=== PATIENT | female | born 1945 | race Caucasian/White ===

== ENCOUNTER 2018-01-01 17:10 | Observation (INO) | payer MEDICARE, BC ==
[~2018-01-01 17:10] MED LIST: ISOVUE-370 76%-LOCM 1 ML ONE
[2018-01-01 18:55] LABS: ALT (SGPT) 25 U/L (8-55); AST (SGOT) 30 U/L (5-34); Albumin 4.3 g/dL (3.4-4.8); Alkaline Phosphatase 86 U/L (40-150); Anion Gap 16 mmol/L (10-20); BUN (Urea Nitrogen) 10 mg/dL (9.8-20.1); Bilirubin, Total 1.3 mg/dL (0.2-1.2); Calc. Creatinine Clearance 0 mL/min (70-130); Calcium 9.5 mg/dL (7.8-10.44); Carbon Dioxide 23 mmol/L (23-31); Chloride 97 mmol/L (98-107); Estimated GFR-MDRD 69; Globulin 3.2 g/dL (2.4-3.5); Glucose 171 mg/dL (83-110); Lipase 25 U/L (8-78); Potassium 3.7 mmol/L (3.5-5.1); Protein, Total 7.5 g/dL (6.0-8.3); Sodium 132 mmol/L (136-145)
[2018-01-01] MEDS ORDERED: Morphine 4 MG/ML VIAL ONE (19:05)
[2018-01-01] MEDS ORDERED: Ondansetron PF 4 MG/2 ML Vial ONE (19:05)
[2018-01-01 19:56] LABS: #Lymphocytes 1.6 thou/uL (1.20-3.40); #Monocytes 0.6 thou/uL (0.11-0.59); #Neutrophils 8.9 thou/uL (1.40-6.50); %Basophils 0.3 % (0.0-1.0); %Eosinophils 0.1 % (0.0-10.0); %Lymphocytes 14.6 % (21.0-51.0); %Monocytes 5.2 % (0.0-10.0); %Neutrophils 79.7 % (42.0-75.0); Anisocytosis MODERATE=16-30 cells (100X) (0-5/hpf); Elliptocytes SLIGHT = 2-5 cells (100X) (0-1/hpf); Hypochromia SLIGHT = 6-15 cells (100X) (0-5/hpf); Large Platelets SLIGHT; MDiff Complete? YES; Mean Corpuscular HGB CONC 31.1 g/dL (32.0-36.0); Mean Corpuscular Hemoglobin 20.3 pg (27.0-31.0); Mean Corpuscular Volume 65.3 fL (78.0-98.0); Mean Platelet Volume 6.8 fL (7.4-10.4); Ovalocytes SLIGHT = 2-5 cells (100X) (0-1/hpf); PLT Morphology Comment Appears Increased; Platelet Count 477 thou/uL (130-400); Polychromasia SLIGHT = 2-3 cells (100X) (0-2/hpf); RBC Distribution Width 20.2 % (11.5-14.5); Red Blood Cell (RBC) Count 7.89 mill/uL (4.20-5.40); White Blood Cell (WBC) Count 11.2 thou/uL (4.8-10.8)
[2018-01-01 19:58] LABS: Bilirubin Small (Negative); Blood, Urine Negative (Negative); Clarity TURBID (Clear); Glucose, Urine (Dipstick) 100 mg/dL (Negative); Leukocyte Small (Negative); Nitrite Negative (Negative); Protein, Urine (Dipstick) 30 mg/dL (Neg-Trace)
[2018-01-01 19:59] LABS: Bacteria/HPF None Seen HPF (None Seen); RBC/HPF 0-3 HPF (0-3)
[2018-01-01 20:09] LABS: Hyaline Casts/LPF 0-3 HYALINE CAST LPF (0-3 Hyaline); Other Casts/LPF None Seen LPF (0-3 Hyaline)
[2018-01-01] MEDS ORDERED: cefTRIAXone\\ROCEPHIN 1 GM VIAL ONE (20:41)
--- NOTE | 2018-01-01 21:09 | CT ---
CT ABDOMEN AND PELVIS WITH IV CONTRAST: 01/01/2018 HISTORY: Abdominal pain. Diarrhea. COMPARISON: None available. FINDINGS: There is bibasilar atelectasis. There is a pleural-based calcification seen at the most medial right lung base. Degenerative changes are seen in the spine. Vascular calcifications are seen in the coronary arteries, as well as involving the abdominal aorta a nd iliac arteries. The heart is mildly enlarged. An exophytic, subcentimeter, rxn-mpeaw-pq-characterize, hypodense lesion is seen at the posterolatera l aspect, mid portion, left kidney. The liver, spleen, pancreas, bilateral adrenal glands, right kidney, and decompressed urinary bladder demonstrate a normal CT appearance. The uterus also demonstrates a normal CT appearance for the age of the patient. There is a large, supraumbilical ventral abdominal wall hernia, which contains mesenteric fat, as wel l as a portion of the transverse colon. There is no evidence of a bowel obstruction. The hernia def ect measures approximately 5.1 cm in transverse dimension. There is colonic diverticulosis. The appendix is visualized and is normal in caliber. Loops of small bowel are normal in caliber. There is no free fluid, fluid collection, or lymphadenopathy seen in the abdomen or pelvis. IMPRESSION: 1. Large ventral abdominal wall hernia, containing a portion of the transverse colon. There is no e vidence of a bowel obstruction. 2. Subcentimeter, xxf-dlnmm-co-characterize, hypodense lesion, left kidney. 3. Mild cardiomegaly. 4. Colonic diverticulosis. POS: DAVID
[2018-01-01 22:39] LABS: Lactic Acid 2.9 mmol/L (0.5-2.2)
[2018-01-01 22:44] VITALS: BMI 40.8
[2018-01-02] MEDS ORDERED: Ondansetron ODT 4 MG TAB SL PRN (07:46)
[2018-01-02] MEDS ORDERED: Dextrose 5% in Water 1,000 ML IV PRN (07:46)
[2018-01-02] MEDS ORDERED: HumaLOG 300 UNITS/3 ML VIAL SC PRN (07:46)
[2018-01-02] MEDS ORDERED: Ondansetron ODT 4 MG TAB PO PRN (07:46)
[2018-01-02] MEDS ORDERED: Acetaminophen 325 MG TAB PO PRN (07:46)
[2018-01-02] MEDS ORDERED: Dextrose 50% Abboject 50 ML SYRINGE SLOW IVP PRN (07:46)
--- NOTE | 2018-01-02 08:50 | HP ---
PRIMARY CARE PHYSICIAN: Alejandra Roach M.D. CHIEF COMPLAINT: Referred to the [facility] Service by [facility] for na usea, vomiting, and diarrhea. HISTORY OF PRESENT ILLNESS: Two days ago, the patient had diarrhea all day long, no blood, that reso lved. Then, yesterday, she had nausea and vomiting, started in the morning, lasted about 4 p.m., bernard e cramping abdominal pain. She had no blood in her stools. She has had no fever or chills. She has been basically okay since 4:00 p.m. yesterday. PAST MEDICAL HISTORY: Diabetes mellitus, type 2, non-insulin dependent; hypertension; elevated melany sterol; and obstructive sleep apnea. CURRENT MEDICATIONS: Alprazolam 0.25 mg twice a day, amlodipine 5 mg a day, aspirin 81 mg a day, Bernard a 350 mg p.o. t.i.d., fenofibrate 145 mg a day, furosemide 40 mg in the morning and 20 mg in the afte rnoon, glipizide 2.5 mg ER daily, metoprolol 100 mg p.o. b.i.d., Protonix 40 mg a day, Paxil 30 mg in the evening, pravastatin 80 mg a day, trazodone 50 mg p.o. at bedtime. ALLERGIES: CODEINE, causes GI upset. PAST SURGICAL HISTORY: Bilateral total knee replacement, tubal ligation in the distant past, skin ca ncer removed from her right arm. She had lymph node removal. She was followed at [facility] and co nsidered cancer free. FAMILY HISTORY: Father had hypertension, of a ruptured aortic abdominal aneurysm. Mother had c oronary artery disease. She with cancer, multiple myeloma. SOCIAL HISTORY: Patient is , FULL CODE status. is surrogate decision maker. She smo kes 1 pack a day for many years, drinks no alcohol. REVIEW OF SYSTEMS: General: She has occasional dizzy, lightheaded spells when her blood sugar gets low; otherwise, no fainting, no dizziness, no headaches. Eyes: No double vision, blurred vision, fl ashing lights. Ears, Nose, Throat: No ear pain or drainage. No nasal bleeding. No trouble swallow ing. Cardiac: No chest pain, orthopnea, or paroxysmal nocturnal dyspnea. Respiratory: She has a c hronic cough, which is only rarely productive of mucoid sputum. She has no dyspnea on exertion, no a sthma, no wheezing. Gastrointestinal: See present illness. Genitourinary: No painful urination, n o blood in her urine. Musculoskeletal: No pain or swelling in her arms or legs. Neurologic: No st rokes, seizures, or focal weakness. Psychiatric: She gets anxiety. She is stable on current medica tions. Skin: With no current bruising, bleeding, or rash. Heme/Lymph: No tender or swollen lymph nodes in axilla, inguinal, or cervical area. PHYSICAL EXAMINATION: GENERAL: She is an alert, pleasant, oriented x3 lady, asking when she can go home. VITAL SIGNS: Blood pressure 120/75, respirations 20, pulse 59, temperature 98.8. HEENT: Examination of her head, eyes, ears, nose, and throat reveal pupils equal, round, and reactiv e to light. Extraocular movements intact. Sclerae white. Tympanic membranes clear. Nose clear. O ral mucous membranes are wet. Dental hygiene is good. NECK: Supple, without jugular venous distention, adenopathy, or thyromegaly. CHEST: Clear to auscultation and percussion. HEART: Regular rate and rhythm. First and second heart sounds are clear. There are no appreciated murmurs or gallops. ABDOMEN: Soft, bowel sounds are normal. There is no hepatosplenomegaly, no mass, no rebound, no ten derness. EXTREMITIES: Reveal no cyanosis, clubbing, or edema. PULSES: Carotid, radial, femoral, and dorsalis pedis pulses intact, symmetric. SKIN: Warm and dry without bruises or rash. HEME/LYMPH: Reveal no tender or swollen lymph nodes in axilla, inguinal, or cervical area. STUDIES: Abdominal CT abdomen and pelvis CT reveals only a ventral hernia with some transverse colon in it, no entrapment. LABORATORY DATA: UA shows 4-6 white cells with a lot of epithelial cells, small leukocyte esterase, negative nitrite. Comp metabolic profile reveals sodium of 132, potassium 3.7, creatinine 0.82, BUN 10, blood sugar 171 and 81. Lactate 3.3 and 2.9, bilirubin 1.3. White count 11.2, hemoglobin 16.0, platelet count 477,000. ADMITTING DIAGNOSES: 1. Gastroenteritis, most likely viral, resolved. 2. Mild lactic acidosis. 3. Pyuria, probably contaminant, as she has a small esterase, negative nitrite, and a lot of epithel ial cells to go along with only 4-6 white cells. 4. Diabetes mellitus, type 2, non-syndrome dependent. 5. Hypertension. 6. Elevated cholesterol. 7. Obstructive sleep apnea. PLAN: 1. Repeat serum lactate. 2. Diabetic diet. 3. Accu-Cheks and sliding scale. 4. Selected home medicines. We will observe over the next few hours. If she eats and remains asymp tomatic, she will be discharged home.
[2018-01-02] MEDS ORDERED: ALPRAZolam 0.25 MG TAB PO SCH (09:00)
[2018-01-02] MEDS ORDERED: Furosemide 20 MG TAB PO SCH ×2 (09:00→16:00)
[2018-01-02] MEDS ORDERED: Aspirin 81 mg Enteric Coated Tablet PO SCH (09:00)
[2018-01-02] MEDS ORDERED: Amlodipine 5 MG TAB PO SCH (09:00)
[2018-01-02 12:11] VITALS: BP 132/106; TEMP 97.5
--- NOTE | 2018-01-02 12:28 | DIS ---
TRANSFER OF CARE NOTE DATE OF ADMISSION: 01/02/2018 DATE OF DISCHARGE: 01/02/2018 DISPOSITION: Discharged home. PRIMARY CARE PROVIDER: Dr. Alejandra Roach FINAL DIAGNOSES: 1. Gastroenteritis, viral, resolved. 2. Diabetes mellitus type 2. 3. Hypertension. 4. Dyslipidemia. 5. Lactic acidosis, mild. DISCHARGE MEDICATIONS: Home medicines; Risperdal 350 t.i.d., aspirin 81 mg a day, trazodone 50 mg p. o. at bedtime, amlodipine 5 mg a day, alprazolam 2.25 mg b.i.d., Lasix 40 mg a day, fenofibrate 145 m g a day, metoprolol 100 mg twice a day, Lasix 20 mg a day in the afternoon, 40 in the morning, Paxil 30 mg a day, glipizide ER 2.5 daily, Protonix 40 mg daily, pravastatin 80 mg daily. ALLERGIES: CODEINE. DIET: Diabetic. PENDING AT THE TIME OF DISCHARGE: Nothing. CODE STATUS: Full. HOSPITAL COURSE: [facility]. She had had diarrhea 2 days before, nausea and vomiting the day before. She was placed in the hospital, had no further nausea, vomiting, etc. overnight. I fed her this morning, she did well. Sh e is ready to go home. Comp metabolic profile showed only a sodium of 132. Blood sugar 171, total b ilirubin 1.3. She did have a lactic acid 3.3, then 2.9, now 1.9. She had 11.2 white count, 16.0, he moglobin, 477,[address] of her abdomen and pelvis revealed a ventral hernia with some transverse colon. No evidence of jake wel obstruction. Abdominal exam is benign. She is eating well, desirous to go home. She is being d ischarged for follow up with Dr. Alejandra Roach in 1 week. PROCEDURES: None. CONSULTATIONS: None.
[2018-01-02] MEDS ORDERED: PARoxetine 20 MG TAB PO SCH (21:00)
[2018-01-02] MEDS ORDERED: Atorvastatin Calcium 20 MG TAB PO SCH (21:00)
[2018-01-02] MEDS ORDERED: traZODone HCl 50 MG TAB PO SCH (21:00)
[2018-01-02] MEDS ORDERED: Fenofibrate Nanocrystallized 145 MG TAB PO SCH (21:00)
== END 2018-01-02 13:42 | disposition home or self-care (01) ==
LOC: ERS 17:10 → 2SW 22:08
PROVIDERS: ADMIT Internal Medicine; ATTEND Internal Medicine
DX: A08.4 Viral intestinal infection, unspecified (principal); I10 Essential (primary) hypertension; E11.9 Type 2 diabetes mellitus without complications; E78.5 Hyperlipidemia, unspecified; E87.2 Acidosis; Z79.82 Long term (current) use of aspirin; Z79.899 Other long term (current) drug therapy; Z88.5 Allergy status to narcotic agent
CPT/HCPCS: 74177; 80053; 82962 ×2; 83605 ×2; 83690; 85025; 87086; 96361; 96365; 96375; 99285; G0378 ×2; 36415; 36416; 81003; 81015; J0696; J2270; J2405

== ENCOUNTER 2019-01-31 17:37 | Emergency (ER) | payer MEDICARE, BC ==
[~2019-01-31 17:37] MED LIST changes: -ISOVUE-370 76%-LOCM 1 ML ONE; +Iopamidol-370 76% 500 ML 1 ML ONE
--- NOTE | 2019-01-31 21:56 | RAD ---
Exam: Chest one view HISTORY:Dyspnea Comparison: 01/26/2019 FINDINGS: Cardiac silhouette:Cardiomegaly Aorta: Atherosclerosis Pulmonary vessels: Normal Costophrenic angles: Clear LUNGS: Diffuse interstitial opacities, without consolidation or mass. Pneumothorax: None Osseous abnormalities: None IMPRESSION: Diffuse interstitial opacities which may represent interstitial infiltrate. Given cardiom egaly, component of heart failure cannot be excluded.
[2019-01-31 21:58] LABS: Hemoglobin 16.3 g/dL (12.0-16.0); Mean Corpuscular HGB CONC 30.3 g/dL (32.0-36.0); Mean Corpuscular Hemoglobin 19.3 pg (27.0-31.0); Mean Corpuscular Volume 63.4 fL (78.0-98.0); Mean Platelet Volume 7.7 fL (7.4-10.4); Platelet Count 472 thou/uL (130-400); RBC Distribution Width 21.1 % (11.5-14.5); Red Blood Cell (RBC) Count 8.76 mill/uL (4.20-5.40); White Blood Cell (WBC) Count 13.3 thou/uL (4.8-10.8)
[2019-01-31 22:05] LABS: #Lymphocytes 1.8 thou/uL (1.20-3.40); #Monocytes 0.9 thou/uL (0.11-0.59); #Neutrophils 10.6 thou/uL (1.40-6.50); %Basophils 0.2 % (0.0-1.0); %Eosinophils 0.2 % (0.0-10.0); %Lymphocytes 13.6 % (21.0-51.0); %Monocytes 6.6 % (0.0-10.0); %Neutrophils 79.5 % (42.0-75.0); Hypochromia SLIGHT = 6-15 cells (100X) (0-5/hpf); Large Platelets SLIGHT; MDiff Complete? YES; Microcytosis SLIGHT = 6-15 cells (100X) (0-5/hpf); Platelet Morphology Comment Appears Increased
[2019-01-31 22:36] LABS: ALT (SGPT) 17 U/L (8-55); AST (SGOT) 23 U/L (5-34); Albumin 4.3 g/dL (3.4-4.8); Alkaline Phosphatase 94 U/L (40-110); Anion Gap 13 mmol/L (10-20); BUN (Urea Nitrogen) 9 mg/dL (9.8-20.1); Bilirubin, Total 1.4 mg/dL (0.2-1.2); Calc. Creatinine Clearance 0 mL/min (70-130); Calcium 9.6 mg/dL (7.8-10.44); Carbon Dioxide 30 mmol/L (23-31); Chloride 96 mmol/L (98-107); Estimated GFR-MDRD 66; Globulin 3.2 g/dL (2.4-3.5); Glucose 133 mg/dL (83-110); Potassium 3.1 mmol/L (3.5-5.1); Protein, Total 7.5 g/dL (6.0-8.3); Sodium 136 mmol/L (136-145)
--- NOTE | 2019-01-31 23:08 | CT ---
EXAM: CT ABDOMEN AND PELVIS HISTORY: Abdominal pain. Nausea. Vomiting. COMPARISON: 01/01/2018 Procedure: Multiple contiguous axial images were obtained and a CT of the abdomen and pelvis with IV contrast. C oronal reformats were performed. FINDINGS: Lower Chest: Chronic changes in the left lower lobe. Vessels: Atherosclerosis of a nonaneurysmal aorta Heart: Normal heart size. No significant pericardial fluid. Calcification of the mitral annulus. Satnam nary calcifications Abdomen: Portal vein:Patent Gallbladder: No calcified gallstones. Normal caliber wall. Liver: within normal limits. Pancreas: within normal limits. Spleen: within normal limits. Adrenals: within normal limits. Kidneys: Symmetric enhancement. Bilaterally no obstructive uropathy. Peritoneum: There is stranding of the central abdominal mesentery. No mass, lymphadenopathy or free a ir.: Small amount of fluid in both paracolic gutters. Bowel: Limited evaluation due to lack of oral contrast administration. Mild bowel wall thickening wit h fluid and adjacent mesenteric fat stranding involving a large anterior abdominal wall hernia. Mesentery and Retroperitoneum: No enlarged mesenteric or retroperitoneal lymph nodes. Abdominal Wall: Large ventral abdominal wall hernia, measuring 17.2 x 9.6 cm. The defect measures 5.9 cm. There are small bowel loops within the hernia sac, some of which demonstrate fecalization. There does not appear to be any associated proximal high-grade obstruction. Nevertheless, given the o verall size of the hernia defect, general surgical consultation is strongly recommended. The right hemicolon and a portion of the transverse colon appear to be in the hernia sac. Pelvis: Reproductive Organs: Uterus and adnexal structures are grossly unremarkable Pelvis: No mass, lymphadenopathy, free air or free fluid. Bladder: within normal limits. Bones: within normal limits. IMPRESSION: Large anterior abdominal wall hernia containing segments of distal small bowel and proximal colon. Th ere is mild bowel wall thickening, adjacent mesenteric fat stranding and fluid involving segment of herniated bowel. There does not appear to be any associated high grade obstruction. Nevertheless, giv en the overall size of the hernia sac general surgical consultation is recommended Transcribed Date/Time: 01/31/2019 11:20 PM
[2019-01-31] MEDS ORDERED: Ondansetron PF 4 MG/2 ML Vial ONE (23:13)
[2019-01-31] MEDS ORDERED: Morphine 4 MG/ML VIAL ONE (23:13)
== END 2019-01-31 23:42 | disposition home or self-care (01) ==
LOC: ERS 17:37
DX: K43.9 Ventral hernia without obstruction or gangrene (principal); E11.9 Type 2 diabetes mellitus without complications; E78.5 Hyperlipidemia, unspecified; E78.00 Pure hypercholesterolemia, unspecified; I10 Essential (primary) hypertension; M19.90 Unspecified osteoarthritis, unspecified site; F32.9 Major depressive disorder, single episode, unspecified; F17.210 Nicotine dependence, cigarettes, uncomplicated; Z79.899 Other long term (current) drug therapy; Z79.84 Long term (current) use of oral hypoglycemic drugs; Z79.82 Long term (current) use of aspirin
CPT/HCPCS: 36415; 71045; 74177; 80053; 83605; 84484; 85025; 93005; 96374; 96375; J2270; J2405; Q9967

== ENCOUNTER 2019-02-06 11:45 | Inpatient (IN) | payer MEDICARE, BC ==
[2019-02-05 12:48] VITALS: BMI 38.9
[~2019-02-06 11:45] MED LIST changes: +Bupivacaine HCl 0.5%/Epinephrine 1:200,000/PF 30 ml Vial ONE; +Glycopyrrolate 0.2 MG/ML 5 ML SYRINGE ONE; -Iopamidol-370 76% 500 ML 1 ML ONE; +Ketorolac Tromethamine 30 MG/ML VIAL ONE; +Lidocaine 1% PF 5 ML VIAL ONE; +Ondansetron PF 4 MG/2 ML Vial ONE; +PHENYLEPHRINE-NS 100 MCG/ML 10 ML SYRINGE ONE; +PROPOFOL 200 MG/20 ML VIAL ONE; +Rocuronium Bromide 10 MG/ML (10ML VIAL) ONE; +Ropivacaine 0.5% HCl/PF (150 MG/30 ML VIAL) ONE
[2019-02-06] MEDS ORDERED: Bupivacaine 0.25% HCL 30 ML VIAL ONE (12:18)
[2019-02-06] MEDS ORDERED: Lidocaine 2% w/Epinephrine 1:200K 20 ML VIAL ONE (12:18)
[2019-02-06] MEDS ORDERED: Midazolam HCl 2 mg/2 ml Vial ONE ×2 (12:24→12:27)
[2019-02-06] MEDS ORDERED: Fentanyl 100 MCG/2 ML VIAL ONE ×2 (12:24→12:27)
[2019-02-06] MEDS ORDERED: HYDROcodone/Acetaminophen 10/325 mg Tablet PO PRN (14:14)
[2019-02-06] MEDS ORDERED: Calcium Carbonate 500 MG ChewTAB PO PRN (14:14)
[2019-02-06] MEDS ORDERED: Ondansetron PF 4 MG/2 ML Vial IVP PRN (14:14)
[2019-02-06] MEDS ORDERED: Dextrose 5% in Water 1,000 ML IV PRN (14:14)
[2019-02-06] MEDS ORDERED: Morphine 2 MG/ML SYRINGE SLOW IVP PRN (14:14)
[2019-02-06] MEDS ORDERED: hydrALAZINE 20 MG/ML VIAL SLOW IVP PRN (14:14)
[2019-02-06] MEDS ORDERED: Promethazine HCl 25 MG/ML VIAL IM PRN ×2 (14:14→14:29)
[2019-02-06] MEDS ORDERED: Dextrose 50% Abboject 50 ML SYRINGE SLOW IVP PRN (14:14)
[2019-02-06] MEDS ORDERED: Mag-Al 1200 mg/1200 mg/30 ML UDCUP PO PRN (14:14)
[2019-02-06] MEDS ORDERED: Morphine 4 MG/ML VIAL SLOW IVP PRN (14:14)
[2019-02-06] MEDS ORDERED: Ondansetron HCl/PF 4 MG/2 ML Vial IVP PRN (14:29)
[2019-02-06] MEDS ORDERED: Promethazine HCl 25 MG/ML VIAL SLOW IVP PRN (14:29)
--- NOTE | 2019-02-06 14:55 | OP ---
DATE OF PROCEDURE: 02/06/2019 PREOPERATIVE DIAGNOSIS: Incarcerated painful ventral hernia. PROCEDURE PERFORMED: Open ventral hernia repair with mesh. INDICATIONS: This is a 73-year-old female with a several year history of an enlarging hernia, which recently has become extremely painful and not able to be reduced. FINDINGS: A 6 cm defect, 17 cm hernia, 15 cm mesh was used for the procedure. DESCRIPTION OF PROCEDURE: After informed consent was obtained, the patient was taken to the operating room and given general endotracheal anesthesia and placed in the supine position. Abdomen was prepped and draped in usual fashion. She had, had preop tap blocks. An upper midline incision was performed. The hernia sac was dissected out using blunt and sharp dissection circumferentially. Then, the hernia sac was excised. Contents were reduced. The defect was 6 cm. A 15-cm PROCEED mesh was fashioned with 0 Ethibond in 4 quadrants. This was hydrated and inserted intra-abdominally. Then using the XATAee needle, these sutures were individually grasped to position the mesh optimally to cover the defect. Then, the defect was closed transversely with interrupted #1 Prolene [id number]. Hemostasis was assured. The wound was irrigated. A drain was placed and brought out through the right side. The subcu was closed with interrupted 3-0 Vicryl. The skin was closed with a running subcuticular 4-0 Rapide. Steri-Strips were applied. Sterile bandage applied. The patient tolerated the procedure well, transferred to Recovery in good condition. Sponge and needle count verified correct x2. Job ID: [id number]
[2019-02-06] MEDS: D5 1/2 NS w/20 mEq KCL 1,000 ML IV SCH (16:06)
[2019-02-06] MEDS: Ketorolac Tromethamine 30 MG/ML VIAL IVP SCH (17:52)
[2019-02-06] MEDS: cefOXitin Sodium/Dextrose,Iso 2 GM in Premix Bag 1 BAG IVPB SCH (20:21)
[2019-02-06] MEDS: Famotidine/PF 20 mg/2ml Vial SLOW IVP SCH (20:21)
[2019-02-06] MEDS: Famotidine 20 MG TAB PO SCH (20:22)
[2019-02-07] MEDS: Ketorolac Tromethamine 30 MG/ML VIAL IVP SCH ×4 (00:04→20:36)
[2019-02-07] MEDS: D5 1/2 NS w/20 mEq KCL 1,000 ML IV SCH ×4 (00:08→19:24)
[2019-02-07] MEDS: cefOXitin Sodium/Dextrose,Iso 2 GM in Premix Bag 1 BAG IVPB SCH ×2 (03:58→15:40)
[2019-02-07 06:23] LABS: #Lymphocytes 1.2 thou/uL (1.20-3.40); %Basophils 0.1 % (0.0-1.0); %Eosinophils 0.1 % (0.0-10.0); %Monocytes 7.8 % (0.0-10.0); %Neutrophils 82.9 % (42.0-75.0)
[2019-02-07 06:24] LABS: Hemoglobin 14.7 g/dL (12.0-16.0); Mean Corpuscular Hemoglobin 19.9 pg (27.0-31.0); Mean Corpuscular Volume 64.1 fL (78.0-98.0); Mean Platelet Volume 7.5 fL (7.4-10.4); Platelet Count 382 thou/uL (130-400); RBC Distribution Width 21.1 % (11.5-14.5); Red Blood Cell (RBC) Count 7.37 mill/uL (4.20-5.40); White Blood Cell (WBC) Count 14.2 thou/uL (4.8-10.8)
[2019-02-07 06:29] LABS: ALT (SGPT) 11 U/L (8-55); AST (SGOT) 28 U/L (5-34); Albumin 3.6 g/dL (3.4-4.8); Alkaline Phosphatase 76 U/L (40-110); Anion Gap 11 mmol/L (10-20); BUN (Urea Nitrogen) 10 mg/dL (9.8-20.1); Bilirubin, Total 1.3 mg/dL (0.2-1.2); Calc. Creatinine Clearance 60 mL/min (70-130); Calcium 8.8 mg/dL (7.8-10.44); Carbon Dioxide 28 mmol/L (23-31); Chloride 98 mmol/L (98-107); Estimated GFR-MDRD 40; Globulin 2.6 g/dL (2.4-3.5); Glucose 150 mg/dL (83-110); Potassium 4.2 mmol/L (3.5-5.1); Protein, Total 6.2 g/dL (6.0-8.3); Sodium 133 mmol/L (136-145)
[2019-02-07] MEDS: Enoxaparin Sodium 40 MG/0.4 ML SYRINGE SC SCH (08:42)
[2019-02-07] MEDS: Famotidine 20 MG TAB PO SCH ×2 (08:42→20:35)
[2019-02-07] MEDS: Famotidine/PF 20 mg/2ml Vial SLOW IVP SCH ×2 (08:44→20:29)
[2019-02-07] MEDS ORDERED: Prevnar 13-Val Conj/PF 0.5 ML SYRINGE IM ONE (09:00)
[2019-02-07] MEDS: HYDROcodone/Acetaminophen 10/325 mg Tablet PO PRN (12:56)
[2019-02-07] MEDS ORDERED: Cyclobenzaprine 10 MG TAB PO PRN (16:03)
[2019-02-07] MEDS ORDERED: Amlodipine 5 MG TAB PO SCH (16:15)
[2019-02-07] MEDS ORDERED: Furosemide 20 MG/2 ML VIAL SLOW IVP SCH (16:30)
--- NOTE | 2019-02-07 16:39 | PRG ---
DATE OF SERVICE: 02/07/2019 SUBJECTIVE: The patient is status post ventral hernia repair yesterday. Pain is okay. She has had some hypoxia, who was guided down to 1 L, but she is only saturating at 92%, still kind of weak. She is tolerating liquids well. She is normally on Lasix and she did get her afternoon dose. LABORATORY DATA: White count 14, H and H of 14 and 47, and platelet count 382. Electrolytes are fine. ASSESSMENT: Probably mild congestive heart failure. PLAN: We will give her some additional Lasix. Continue to ambulate, and hopefully, be able to discharge tomorrow. Job ID: [id number]
[2019-02-07] MEDS: ALPRAZolam 0.25 MG TAB PO SCH (20:35)
[2019-02-07] MEDS ORDERED: Pravastatin Sodium 40 MG TAB PO SCH (21:00)
[2019-02-07] MEDS ORDERED: traZODone HCl 50 MG TAB PO SCH (21:00)
[2019-02-07] MEDS ORDERED: Furosemide 20 MG TAB PO SCH (21:00)
[2019-02-07] MEDS ORDERED: PARoxetine 20 MG TAB PO SCH (21:00)
[2019-02-07] MEDS ORDERED: Fenofibrate Nanocrystallized 145 MG TAB PO SCH (21:00)
[2019-02-08] MEDS: cefOXitin Sodium/Dextrose,Iso 2 GM in Premix Bag 1 BAG IVPB SCH ×2 (00:06→06:35)
[2019-02-08] MEDS: Ketorolac Tromethamine 30 MG/ML VIAL IVP SCH ×2 (02:37→08:18)
[2019-02-08 08:16] VITALS: TEMP 97.9
[2019-02-08] MEDS: ALPRAZolam 0.25 MG TAB PO SCH (08:16)
[2019-02-08] MEDS: Famotidine 20 MG TAB PO SCH (08:17)
[2019-02-08] MEDS ORDERED: Amlodipine 5 MG TAB PO SCH (09:00)
[2019-02-08] MEDS ORDERED: Aspirin 81 mg Enteric Coated Tablet PO SCH (09:00)
[2019-02-08] MEDS ORDERED: Furosemide 40 MG TAB PO SCH (09:00)
[2019-02-08] MEDS: Famotidine/PF 20 mg/2ml Vial SLOW IVP SCH (09:10)
[2019-02-08 12:13] VITALS: BP 131/83
[2019-02-08] MEDS: HYDROcodone/Acetaminophen 10/325 mg Tablet PO PRN (12:31)
[2019-02-08] MEDS: Enoxaparin Sodium 40 MG/0.4 ML SYRINGE SC SCH (13:27)
--- NOTE | 2019-02-08 14:05 | DIS ---
DATE OF ADMISSION: 02/06/2019 DATE OF DISCHARGE: 02/08/2019 DISCHARGE DIAGNOSES: Large incarcerated ventral hernia, chronic obstructive pulmonary disease, and sleep apnea. PROCEDURES DURING ADMISSION: Open ventral hernia repair with mesh. HOSPITAL COURSE: The patient was admitted, taken to the operating room, where she underwent repair of this hernia. Postoperatively, she had some hypoxia requiring oxygen that slowly resolved. She is now 90% to 92% on room air. She is discharged home on hydrocodone and Zofran. She will follow up with me on Monday because she will be sent home with a drain. Job ID: [id number]
[2019-02-09] MEDS ORDERED: Enoxaparin Sodium 40 MG/0.4 ML SYRINGE SC SCH (09:00)
== END 2019-02-08 13:25 | disposition home or self-care (01) | DRG 355 ==
LOC: SDC 11:45 → SJJU 14:18
PROVIDERS: ADMIT Surgery; ATTEND Surgery
PROC: 0WUF0JZ Supplement Abdominal Wall with Synthetic Substitute, Open Approach (ICD-10-PCS; principal; 2019-02-06)
DX: K43.6 Other and unspecified ventral hernia with obstruction, without gangrene (principal); J44.9 Chronic obstructive pulmonary disease, unspecified; R09.02 Hypoxemia; G47.30 Sleep apnea, unspecified; I50.9 Heart failure, unspecified; Z96.653 Presence of artificial knee joint, bilateral; E11.36 Type 2 diabetes mellitus with diabetic cataract; K21.9 Gastro-esophageal reflux disease without esophagitis; F17.200 Nicotine dependence, unspecified, uncomplicated; E78.5 Hyperlipidemia, unspecified; F41.9 Anxiety disorder, unspecified; F32.9 Major depressive disorder, single episode, unspecified; E66.01 Morbid (severe) obesity due to excess calories; Z68.39 Body mass index [BMI] 39.0-39.9, adult; Z85.820 Personal history of malignant melanoma of skin; Z79.899 Other long term (current) drug therapy; Z79.82 Long term (current) use of aspirin; Z79.84 Long term (current) use of oral hypoglycemic drugs; Z88.5 Allergy status to narcotic agent; Z91.041 Radiographic dye allergy status; Z91.040 Latex allergy status
CPT/HCPCS: 36415; 80053; 85025; J0670; J0690; J0694; J1650; J1885; J1940; J2001; J2250; J2405; J2704; J2795; J3010; S0020

== ENCOUNTER 2019-07-22 | Inpatient (IN) | payer MEDICARE, BC | END 2019-07-25 14:45 | disposition home or self-care (01) | DRG 896 | PROVIDERS: ADMIT Student in an Organized Health Care Education/Training Program | DX: F13.239 Sedative, hypnotic or anxiolytic dependence with withdrawal, unspecified (principal); G93.41 Metabolic encephalopathy; E87.1 Hypo-osmolality and hyponatremia; F19.939 Other psychoactive substance use, unspecified with withdrawal, unspecified; E78.5 Hyperlipidemia, unspecified; I10 Essential (primary) hypertension; E11.9 Type 2 diabetes mellitus without complications; M19.90 Unspecified osteoarthritis, unspecified site; R44.1 Visual hallucinations; G47.33 Obstructive sleep apnea (adult) (pediatric); T42.4X5A Adverse effect of benzodiazepines, initial encounter; K52.9 Noninfective gastroenteritis and colitis, unspecified; F32.9 Major depressive disorder, single episode, unspecified; Z91.138 Patient's unintentional underdosing of medication regimen for other reason; Z91.041 Radiographic dye allergy status; Z91.040 Latex allergy status; Z88.5 Allergy status to narcotic agent ==

== ENCOUNTER 2019-11-27 14:21 | Outpatient (CLI) | payer MEDICARE, BC ==
--- NOTE | 2019-11-27 16:11 | MRI ---
Exam: MRI cervical spine without contrast HISTORY: Cervical radicular pain.. COMPARISON: None FINDINGS: Despite repeat imaging, there is motion degradation on all of the sequences. Appropriate T1 marrow signal intensity of the cervical vertebra. Cervical spine vertebral body heigh ts are maintained. No fracture. No significant STIR hyperintensity suggest ligamentous injury or vertebral body edema. There appears be grade 1 anterolisthesis of C3 upon C4. Visualized brain parenchyma, cervicomedullary junction, cervical cord and the upper thoracic cord hav e a normal size and signal intensity C2-C3: No high-grade central canal stenosis or high-grade neural foraminal narrowing C3-C4: No high-grade central canal stenosis or high-grade neural foraminal narrowing C4-C5: No high-grade central canal stenosis or high-grade foraminal narrowing C5-C6: Moderate loss of disc space height. Broad-based discussed by complex. Moderate central canal s tenosis. Severe right and moderate left neural foraminal narrowing C6-C7: Disc desiccation with moderate loss of disc space height. Broad-based discussed by complex. Mo derate central canal stenosis. Moderate bilateral neural foraminal narrowing C7-T1: No posterior disc abnormality. No significant central canal stenosis or significant neural for aminal narrowing IMPRESSION: 1. Limited evaluation due to motion degradation. 2. Degenerative changes of the cervical spine as described above. Transcribed Date/Time: 11/27/2019 5:34 PM
== END 2019-11-27 14:22 | disposition home or self-care (01) ==
LOC: BICMRI 14:21
PROVIDERS: ATTEND Family Medicine
DX: M50.10 Cervical disc disorder with radiculopathy, unspecified cervical region (principal); M47.22 Other spondylosis with radiculopathy, cervical region; G89.4 Chronic pain syndrome
CPT/HCPCS: 72141

== ENCOUNTER 2020-05-14 13:21 | Inpatient (IN) | payer MEDICARE, BC ==
[2020-05-14 14:38] LABS: Bacteria/HPF 2+ HPF (None Seen); Bilirubin 1+ (Negative); Blood, Urine Negative (Negative); Clarity Turbid (Clear); Glucose, Urine (Dipstick) Normal (Negative); Ketone, Urine Negative (Negative); Leukocyte Negative Leu/uL (Negative); Nitrite Negative (Negative); Protein, Urine (Dipstick) 100 mg/dL (Neg-Trace); RBC/HPF 0-3 HPF (0-3); Specific Gravity, Urine 1.018 (1.002-1.036); Squamous Epithelial 0-3 HPF (0-3); WBC/HPF 0-3 HPF (0-3); pH, Urine 5.5 (5.0-9.0)
[2020-05-14 14:48] LABS: Hemoglobin 11.7 g/dL (12.0-16.0); Mean Corpuscular HGB CONC 28.1 g/dL (32.0-36.0); Mean Corpuscular Hemoglobin 17.6 pg (27.0-31.0); Mean Corpuscular Volume 62.7 fL (78.0-98.0); Mean Platelet Volume 7.9 fL (7.4-10.4); Platelet Count 312 thou/uL (130-400); Red Blood Cell (RBC) Count 6.62 mill/uL (4.20-5.40); White Blood Cell (WBC) Count 11.5 thou/uL (4.8-10.8)
[2020-05-14] MEDS ORDERED: Iopamidol-370 76% 500 ML 1 ML ONE (14:52)
[2020-05-14] MEDS ORDERED: Lorazepam 2 MG/ML VIAL ONE ×2 (15:03→17:18)
[2020-05-14] MEDS ORDERED: Haloperidol Lactate 5 MG/ML VIAL ONE (15:03)
[2020-05-14 15:04] LABS: ALT (SGPT) 22 U/L (8-55); AST (SGOT) 56 U/L (5-34); Albumin 3.2 g/dL (3.4-4.8); Alkaline Phosphatase 148 U/L (40-110); Anion Gap 17 mmol/L (10-20); BUN (Urea Nitrogen) 12 mg/dL (9.8-20.1); Bilirubin, Total 10.4 mg/dL (0.2-1.2); Calc. Creatinine Clearance 0 mL/min (70-130); Calcium 8.8 mg/dL (7.8-10.44); Carbon Dioxide 20 mmol/L (23-31); Chloride 88 mmol/L (98-107); Glucose 93 mg/dL (83-110); Lipase 19 U/L (8-78); Potassium 3.9 mmol/L (3.5-5.1); Protein, Total 6.2 g/dL (5.8-8.1); Sodium 121 mmol/L (136-145)
[2020-05-14 15:08] LABS: Anisocytosis MODERATE=16-30 cells (100X) (0-5/hpf); Band 7 % (5-11); Hypochromia MODERATE=16-30 cells (100X) (0-5/hpf); Lymphocytes 7 % (21-51); MDiff Complete? YES; Monocytes 2 % (0-10); Neutrophil 84 % (42-75); Platelet Clumps SLIGHT; Platelet Morphology Comment Appears Adequate; Polychromasia MODERATE = 3-4 cells (100X) (0-2/hpf); Target Cells SLIGHT = 2-5 cells (100X) (0-1/hpf); Tear Drops SLIGHT = 2-5 cells (100X) (0-1/hpf)
[2020-05-14 17:10] LABS: SARS-CoV-2 NAA Rapid Test Not Detected (NotDetected)
[2020-05-14] MEDS ORDERED: diphenhydrAMINE 50 MG/ML VIAL ONE (17:18)
[2020-05-14 17:54] LABS: Reticulocyte Count 3.5 % (0.5-1.5)
[2020-05-14 17:58] LABS: INR-International Normal Ratio 1.6; PTT 38.2 sec (22.9-36.1); Prothrombin Time 19.3 sec (12.0-14.7)
[2020-05-14 18:16] LABS: Bilirubin, Direct 8.5 mg/dL (0.1-0.3); Bilirubin, Total 11.9 mg/dL (0.2-1.2)
[2020-05-14 19:05] LABS: Thyroid Stimulating Hormone 3.1908 uIU/mL (0.35-4.94)
[2020-05-14] MEDS ORDERED: Multivitamins, Adult 10 ML in Dextrose 5 % And 0.9 % NaCl 1,000 ML IV SCH (19:15)
[2020-05-14] MEDS ORDERED: Dextrose 5 % And 0.9 % NaCl 1,000 ML IV SCH (19:15)
[2020-05-14 19:43] LABS: Actual Bicarbonate (HCO3a) 15.8 mEq/L (22-28); Base Excess (BEa) -7.9 mEq/L (-2.0 to +3.0); CO2 Tension 27.7 mmHg (35.0-45.0); Hemoglobin (Hb) 13.1 g/dL (12.0-16.0); O2 Tension (PaO2), arterial 66.5 mmHg (> 70.0); Potassium - ABG Lab 3.88 mmol/L (3.70-5.30); pH, Arterial 7.38 (7.35-7.45)
[2020-05-14 19:44] LABS: Puncture Site RRA
[2020-05-14 19:45] LABS: ALV-art Gradient 212.595 mmHg (0-20)
[2020-05-14] MEDS ORDERED: Lactulose 10 GM/15 ML Oral Solution PR SCH (20:30)
[2020-05-14] MEDS ORDERED: Furosemide 40 MG/4 ML VIAL ONE (20:37)
[2020-05-14] MEDS ORDERED: Furosemide 40 MG/4 ML VIAL SLOW IVP SCH (20:45)
[2020-05-14] MEDS ORDERED: VANCOMYCIN 1.25 GM/250 ML BAG IVPB SCH (20:45)
[2020-05-14 21:08] LABS: Lactic Acid 4.2 mmol/L (0.5-2.2)
[2020-05-14] MEDS ORDERED: Ondansetron ODT 4 MG TAB PO PRN (21:11)
[2020-05-14] MEDS ORDERED: Ondansetron PF 4 MG/2 ML Vial IVP PRN (21:11)
[2020-05-14 21:24] LABS: Albumin 3.2 g/dL (3.4-4.8)
[2020-05-14 21:25] LABS: Chloride 92 mmol/L (98-107); Potassium 4.6 mmol/L (3.5-5.1); Sodium 124 mmol/L (136-145)
[2020-05-14] MEDS ORDERED: Dextrose 5% in Water 1,000 ML IV PRN (21:26)
[2020-05-14 21:27] LABS: Globulin 3.1 g/dL (2.4-3.5); Glucose 78 mg/dL (83-110); Protein, Total 6.3 g/dL (5.8-8.1)
[2020-05-14 21:28] LABS: Anion Gap 26 mmol/L (10-20); Bilirubin, Total 11.5 mg/dL (0.2-1.2); Carbon Dioxide 11 mmol/L (23-31)
[2020-05-14 21:29] LABS: Alkaline Phosphatase 148 U/L (40-110)
[2020-05-14 21:30] LABS: Calc. Creatinine Clearance 0 mL/min (70-130)
[2020-05-14 21:31] LABS: BUN (Urea Nitrogen) 14 mg/dL (9.8-20.1)
[2020-05-14 21:32] LABS: ALT (SGPT) 27 U/L (8-55); AST (SGOT) 75 U/L (5-34)
[2020-05-14] MEDS ORDERED: Albumin 25% 25 GM/100 ML BOT IVPB SCH (22:00)
[2020-05-14] MEDS: Acetaminophen 325 MG TAB PO PRN (22:18)
[2020-05-14] MEDS: Piperacillin/Tazobactam 4.5 GM in Sodium Chloride 0.9% 100 ML IVPB SCH (22:19)
[2020-05-14] MEDS ORDERED: VANCOMYCIN 2 GRAM/400 ML BAG 2 GM in Premix Bag 1 BAG IVPB SCH (22:30)
[2020-05-14 22:55] LABS: Anion Gap 21 mmol/L (10-20); BUN (Urea Nitrogen) 14 mg/dL (9.8-20.1); Calc. Creatinine Clearance 110 mL/min (70-130); Calcium 9.2 mg/dL (7.8-10.44); Carbon Dioxide 16 mmol/L (23-31); Chloride 89 mmol/L (98-107); Glucose 81 mg/dL (83-110); Potassium 4.2 mmol/L (3.5-5.1); Sodium 122 mmol/L (136-145); Uric Acid 6.7 mg/dL (2.6-6.0)
[2020-05-15] MEDS ORDERED: OLANZapine 10 MG VIAL IM SCH (00:15)
[2020-05-15] MEDS ORDERED: Sterile Water 10 ML VIAL FS PRN (00:30)
[2020-05-15 00:52] LABS: Lactic Acid 1.9 mmol/L (0.5-2.2)
[2020-05-15 03:57] LABS: INR-International Normal Ratio 1.6; PTT 30.2 sec (22.9-36.1); Prothrombin Time 19.6 sec (12.0-14.7)
[2020-05-15] MEDS: Piperacillin/Tazobactam 4.5 GM in Sodium Chloride 0.9% 100 ML IVPB SCH ×2 (04:00→13:38)
[2020-05-15 04:16] LABS: Anion Gap 19 mmol/L (10-20); BUN (Urea Nitrogen) 15 mg/dL (9.8-20.1); Calc. Creatinine Clearance 116 mL/min (70-130); Calcium 9.1 mg/dL (7.8-10.44); Carbon Dioxide 19 mmol/L (23-31); Chloride 92 mmol/L (98-107); Glucose 87 mg/dL (83-110); Potassium 4.1 mmol/L (3.5-5.1); Sodium 126 mmol/L (136-145)
[2020-05-15 04:20] LABS: Anion Gap 20 mmol/L (10-20); BUN (Urea Nitrogen) 14 mg/dL (9.8-20.1); Calc. Creatinine Clearance 119 mL/min (70-130); Calcium 9.1 mg/dL (7.8-10.44); Carbon Dioxide 17 mmol/L (23-31); Chloride 93 mmol/L (98-107); Glucose 86 mg/dL (83-110); Potassium 4.1 mmol/L (3.5-5.1); Sodium 126 mmol/L (136-145)
[2020-05-15] MEDS: Folic Acid 1 MG TAB PO SCH (08:37)
[2020-05-15] MEDS: Enoxaparin Sodium 40 MG/0.4 ML SYRINGE SC SCH (08:37)
[2020-05-15] MEDS: Furosemide 40 MG/4 ML VIAL SLOW IVP SCH (08:39)
[2020-05-15] MEDS: Lorazepam 2 MG/ML VIAL SLOW IVP PRN (08:43)
[2020-05-15] MEDS ORDERED: Lorazepam 2 MG/ML VIAL ONE (09:46)
[2020-05-15] MEDS ORDERED: VANCOMYCIN 1.25 GM/250 ML BAG 1.25 GM in Premix Bag 1 BAG IVPB SCH (10:00)
[2020-05-15] MEDS ORDERED: Lorazepam 2 MG/ML VIAL SLOW IVP SCH (10:00)
[2020-05-15] MEDS ORDERED: Vancomycin HCl 1.25 GM in Sodium Chloride 0.9% 250 ML 250 ML IVPB SCH (10:00)
[2020-05-15 10:47] LABS: Hemoglobin 11.9 g/dL (12.0-16.0); Mean Corpuscular HGB CONC 29.5 g/dL (32.0-36.0); Mean Corpuscular Hemoglobin 18.8 pg (27.0-31.0); Mean Corpuscular Volume 63.8 fL (78.0-98.0); Mean Platelet Volume 6.6 fL (7.4-10.4); Platelet Count 405 thou/uL (130-400); RBC Distribution Width 27.6 % (11.5-14.5); Red Blood Cell (RBC) Count 6.31 mill/uL (4.20-5.40); White Blood Cell (WBC) Count 16.5 thou/uL (4.8-10.8)
[2020-05-15 11:01] LABS: Anion Gap 15 mmol/L (10-20); BUN (Urea Nitrogen) 13 mg/dL (9.8-20.1); Calc. Creatinine Clearance 121 mL/min (70-130); Calcium 8.8 mg/dL (7.8-10.44); Carbon Dioxide 24 mmol/L (23-31); Chloride 93 mmol/L (98-107); Glucose 88 mg/dL (83-110); Sodium 129 mmol/L (136-145)
[2020-05-15 11:44] LABS: Anisocytosis MARKED = >30 cells (100X) (0-5/hpf); Band 13 % (5-11); Hypochromia MODERATE=16-30 cells (100X) (0-5/hpf); Lymphocytes 8 % (21-51); MDiff Complete? YES; Microcytosis MODERATE=15-30 cells (100X) (0-5/hpf); Monocytes 3 % (0-10); Neutrophil 73 % (42-75); Nucleated RBC 1 % (0); Platelet Morphology Comment Appears Increased; Polychromasia MODERATE = 3-4 cells (100X) (0-2/hpf); Reactive Lymphocytes 3 % (0-10); Target Cells SLIGHT = 2-5 cells (100X) (0-1/hpf)
[2020-05-15] MEDS ORDERED: Potassium Chloride 40 MEQ in Premix Bag 1 BAG IVPB SCH (15:30)
[2020-05-15] MEDS ORDERED: Cefepime 1 GM in Sodium Chloride 0.9% 100 ML IVPB SCH (21:00)
[2020-05-15] MEDS: MEROPENEM 1 GM/50 ML 1 GM in Premix Bag 1 BAG IVPB SCH (21:33)
[2020-05-15] MEDS: VANCOMYCIN 1.25 GM/250 ML BAG 1.25 GM in Premix Bag 1 BAG IVPB SCH (22:40)
[2020-05-16 04:42] LABS: #Lymphocytes 0.8 thou/uL (1.20-3.40); #Neutrophils 10.8 thou/uL (1.40-6.50); %Basophils 0.2 % (0.0-1.0); %Eosinophils 0.1 % (0.0-10.0); %Lymphocytes 6.4 % (21.0-51.0); %Monocytes 7.6 % (0.0-10.0); %Neutrophils 85.7 % (42.0-75.0); Hemoglobin 10.9 g/dL (12.0-16.0); Mean Corpuscular HGB CONC 28.1 g/dL (32.0-36.0); Mean Corpuscular Hemoglobin 18.3 pg (27.0-31.0); Mean Corpuscular Volume 65.2 fL (78.0-98.0); Mean Platelet Volume 6.4 fL (7.4-10.4); Platelet Count 353 thou/uL (130-400); RBC Distribution Width 27.7 % (11.5-14.5); Red Blood Cell (RBC) Count 5.98 mill/uL (4.20-5.40); White Blood Cell (WBC) Count 12.6 thou/uL (4.8-10.8)
[2020-05-16 05:02] LABS: ALT (SGPT) 41 U/L (8-55); AST (SGOT) 112 U/L (5-34); Albumin 2.9 g/dL (3.4-4.8); Alkaline Phosphatase 107 U/L (40-110); Anion Gap 14 mmol/L (10-20); BUN (Urea Nitrogen) 9 mg/dL (9.8-20.1); Bilirubin, Total 10.1 mg/dL (0.2-1.2); Calc. Creatinine Clearance 145 mL/min (70-130); Calcium 8.3 mg/dL (7.8-10.44); Carbon Dioxide 26 mmol/L (23-31); Chloride 99 mmol/L (98-107); Globulin 2.4 g/dL (2.4-3.5); Glucose 75 mg/dL (83-110); Protein, Total 5.3 g/dL (5.8-8.1); Sodium 136 mmol/L (136-145)
[2020-05-16 05:04] LABS: Potassium 2.6 mmol/L (3.5-5.1)
[2020-05-16] MEDS: MEROPENEM 1 GM/50 ML 1 GM in Premix Bag 1 BAG IVPB SCH ×3 (05:05→22:02)
[2020-05-16] MEDS ORDERED: Electrolyte Replacement Protocol FS PRN (05:30)
[2020-05-16] MEDS: Potassium Chloride 40 MEQ in Premix Bag 1 BAG IVPB SCH ×2 (05:35→09:01)
[2020-05-16] MEDS: Folic Acid 1 MG TAB PO SCH (08:39)
[2020-05-16] MEDS: Furosemide 40 MG/4 ML VIAL SLOW IVP SCH (08:39)
[2020-05-16] MEDS: Enoxaparin Sodium 40 MG/0.4 ML SYRINGE SC SCH (08:39)
[2020-05-16] MEDS ORDERED: Magnesium 2 GM/50 ML 2 GM in Premix Bag 1 BAG IVPB SCH (08:45)
[2020-05-16 09:24] LABS: Vancomycin, Trough 13.9 ug/mL
[2020-05-16] MEDS: VANCOMYCIN 1.25 GM/250 ML BAG 1.25 GM in Premix Bag 1 BAG IVPB SCH (11:36)
[2020-05-16] MEDS: Vancomycin 1.5 GRAM/300 ML BAG 1.5 GM in Premix Bag 1 BAG IVPB SCH ×2 (11:38→22:29)
[2020-05-16] MEDS: Dextrose 50% Abboject 50 ML SYRINGE SLOW IVP PRN (17:10)
[2020-05-16] MEDS ORDERED: Metoprolol Tartrate 5 MG/5 ML VIAL ONE ×3 (20:59→21:19)
[2020-05-16] MEDS ORDERED: Adenosine 6 MG/2 ML VIAL ONE (21:23)
[2020-05-16] MEDS ORDERED: Potassium Bicarbonate/Cit Ac 20 MEQ TAB PER TUBE SCH (21:30)
[2020-05-16] MEDS ORDERED: Metoprolol Tartrate 5 MG/5 ML VIAL IVP SCH (21:30)
[2020-05-16 21:43] LABS: Anion Gap 17 mmol/L (10-20); BUN (Urea Nitrogen) 8 mg/dL (9.8-20.1); Calc. Creatinine Clearance 150 mL/min (70-130); Calcium 8.4 mg/dL (7.8-10.44); Carbon Dioxide 26 mmol/L (23-31); Chloride 101 mmol/L (98-107); Glucose 103 mg/dL (83-110); Magnesium 2.2 mg/dL (1.6-2.6); Sodium 141 mmol/L (136-145)
[2020-05-16] MEDS ORDERED: Potassium Chloride 40 MEQ in Sodium Chloride 0.9% 250 ML 250 ML IVPB SCH (22:00)
[2020-05-17 04:02] LABS: ALT (SGPT) 46 U/L (8-55); AST (SGOT) 86 U/L (5-34); Albumin 3.1 g/dL (3.4-4.8); Alkaline Phosphatase 115 U/L (40-110); Anion Gap 17 mmol/L (10-20); BUN (Urea Nitrogen) 8 mg/dL (9.8-20.1); Bilirubin, Total 10.6 mg/dL (0.2-1.2); Calc. Creatinine Clearance 145 mL/min (70-130); Calcium 8.5 mg/dL (7.8-10.44); Carbon Dioxide 25 mmol/L (23-31); Chloride 102 mmol/L (98-107); Globulin 2.7 g/dL (2.4-3.5); Glucose 127 mg/dL (83-110); Potassium 4.2 mmol/L (3.5-5.1); Protein, Total 5.8 g/dL (5.8-8.1); Sodium 140 mmol/L (136-145)
[2020-05-17 04:03] LABS: Band 3 % (5-11); Lymphocytes 7 % (21-51); MDiff Complete? YES; Mean Corpuscular HGB CONC 28.8 g/dL (32.0-36.0); Mean Corpuscular Volume 65.9 fL (78.0-98.0); Mean Platelet Volume 6.4 fL (7.4-10.4); Monocytes 6 % (0-10); Neutrophil 83 % (42-75); Platelet Count 356 thou/uL (130-400); Platelet Morphology Comment Appears Adequate; RBC Distribution Width 28.6 % (11.5-14.5); RBC Morphology Normal; Reactive Lymphocytes 1 % (0-10); Red Blood Cell (RBC) Count 6.33 mill/uL (4.20-5.40); White Blood Cell (WBC) Count 14.1 thou/uL (4.8-10.8)
[2020-05-17] MEDS: MEROPENEM 1 GM/50 ML 1 GM in Premix Bag 1 BAG IVPB SCH ×3 (05:07→21:33)
[2020-05-17] MEDS: Amlodipine 5 MG TAB PO SCH (08:30)
[2020-05-17] MEDS: Folic Acid 1 MG TAB PO SCH (08:30)
[2020-05-17] MEDS: Cholecalciferol 1,000 UNITS (25 MCG) TAB PO SCH (08:30)
[2020-05-17] MEDS: Enoxaparin Sodium 40 MG/0.4 ML SYRINGE SC SCH (08:31)
[2020-05-17] MEDS: Furosemide 40 MG/4 ML VIAL SLOW IVP SCH (08:31)
[2020-05-17] MEDS: Vancomycin 1.5 GRAM/300 ML BAG 1.5 GM in Premix Bag 1 BAG IVPB SCH ×2 (11:40→23:41)
[2020-05-17] MEDS: Acetaminophen 325 MG TAB PO PRN (15:58)
[2020-05-17 22:27] LABS: Vancomycin, Trough 18.2 ug/mL
[2020-05-18] MEDS: MEROPENEM 1 GM/50 ML 1 GM in Premix Bag 1 BAG IVPB SCH ×3 (06:30→21:10)
[2020-05-18] MEDS ORDERED: Lorazepam 2 MG/ML VIAL SLOW IVP SCH (08:00)
[2020-05-18] MEDS: Cholecalciferol 1,000 UNITS (25 MCG) TAB PO SCH (08:37)
[2020-05-18] MEDS: Enoxaparin Sodium 40 MG/0.4 ML SYRINGE SC SCH (08:37)
[2020-05-18] MEDS: Folic Acid 1 MG TAB PO SCH (08:37)
[2020-05-18] MEDS: Amlodipine 5 MG TAB PO SCH (08:37)
[2020-05-18] MEDS: Furosemide 40 MG/4 ML VIAL SLOW IVP SCH (08:37)
[2020-05-18] MEDS ORDERED: Fentanyl 100 MCG/2 ML VIAL ONE (09:53)
[2020-05-18] MEDS ORDERED: SUGAMMADEX SODIUM 200 MG/2 ML VIAL ONE (10:18)
[2020-05-18] MEDS ORDERED: Ondansetron PF 4 MG/2 ML Vial ONE (10:30)
[2020-05-18] MEDS ORDERED: Lidocaine 1% PF 5 ML VIAL ONE (10:30)
[2020-05-18] MEDS ORDERED: Rocuronium Bromide 10 MG/ML (10ML VIAL) ONE (10:30)
[2020-05-18] MEDS ORDERED: Succinylcholine 200 MG/10 ml SYRINGE FS ONE (10:30)
[2020-05-18] MEDS ORDERED: PHENYLEPHRINE-NS 100 MCG/ML 10 ML SYRINGE ONE (10:30)
[2020-05-18] MEDS ORDERED: PROPOFOL 200 MG/20 ML VIAL ONE (10:30)
[2020-05-18] MEDS ORDERED: Glycopyrrolate 0.2 MG/ML 5 ML SYRINGE ONE (10:30)
[2020-05-18] MEDS ORDERED: Dexamethasone 20 MG/5 ML VIAL ONE (10:30)
[2020-05-18 10:44] LABS: ALT (SGPT) 51 U/L (8-55); AST (SGOT) 71 U/L (5-34); Albumin 3.2 g/dL (3.4-4.8); Alkaline Phosphatase 111 U/L (40-110); Anion Gap 17 mmol/L (10-20); BUN (Urea Nitrogen) 10 mg/dL (9.8-20.1); Bilirubin, Total 10.8 mg/dL (0.2-1.2); Calc. Creatinine Clearance 127 mL/min (70-130); Calcium 8.7 mg/dL (7.8-10.44); Carbon Dioxide 25 mmol/L (23-31); Chloride 101 mmol/L (98-107); Globulin 2.9 g/dL (2.4-3.5); Glucose 153 mg/dL (83-110); Potassium 3.1 mmol/L (3.5-5.1); Protein, Total 6.1 g/dL (5.8-8.1); Sodium 140 mmol/L (136-145)
[2020-05-18] MEDS ORDERED: Potassium Chloride 20 MEQ TAB PO SCH (11:00)
[2020-05-18 11:02] LABS: CEA, Serum 5.94 ng/mL (< or = 5.0)
[2020-05-18 11:13] LABS: Hemoglobin 12.2 g/dL (12.0-16.0); Mean Corpuscular Hemoglobin 18.5 pg (27.0-31.0); Mean Corpuscular Volume 66.2 fL (78.0-98.0); Mean Platelet Volume 6.6 fL (7.4-10.4); Platelet Count 341 thou/uL (130-400); RBC Distribution Width 28.6 % (11.5-14.5); White Blood Cell (WBC) Count 10.7 thou/uL (4.8-10.8)
[2020-05-18 11:15] LABS: HBCM Index 0.07 S/CO (0-0.79); HBSAg Index 0.25 S/CO (0-0.99); Hep A IgM AB Non-Reactive (NonReactive); Hep A IgM S/CO 0.11 S/CO (0-0.79); Hep B Surf Ag Non-Reactive S/CO (NonReactive); Hep C IgG Ab Non-Reactive (NonReactive); Hep C Index 0.29 S/CO (0-0.79); Hepatitis B Core IgM Abs Non-Reactive (NonReactive)
[2020-05-18 11:47] LABS: Band 7 % (5-11); Eosinophils 1 % (0-10); Hypochromia MODERATE=16-30 cells (100X) (0-5/hpf); Lymphocytes 5 % (21-51); MDiff Complete? YES; Microcytosis MODERATE=15-30 cells (100X) (0-5/hpf); Monocytes 2 % (0-10); Neutrophil 82 % (42-75); Platelet Morphology Comment Appears Adequate; Polychromasia MODERATE = 3-4 cells (100X) (0-2/hpf); Reactive Lymphocytes 2 % (0-10); Target Cells SLIGHT = 2-5 cells (100X) (0-1/hpf)
[2020-05-18] MEDS: Vancomycin 1.5 GRAM/300 ML BAG 1.5 GM in Premix Bag 1 BAG IVPB SCH ×2 (13:43→23:25)
[2020-05-18] MEDS ORDERED: Magnevist 469MG/ML 20 ML VIAL ONE (14:24)
[2020-05-18] MEDS: HumaLOG 300 UNITS/3 ML VIAL SC PRN (17:53)
[2020-05-18] MEDS: Lorazepam 2 MG/ML VIAL SLOW IVP PRN (23:56)
[2020-05-19 06:02] LABS: ALT (SGPT) 48 U/L (8-55); AST (SGOT) 63 U/L (5-34); Albumin 3.1 g/dL (3.4-4.8); Alkaline Phosphatase 100 U/L (40-110); Anion Gap 12 mmol/L (10-20); BUN (Urea Nitrogen) 15 mg/dL (9.8-20.1); Calc. Creatinine Clearance 120 mL/min (70-130); Calcium 9.1 mg/dL (7.8-10.44); Carbon Dioxide 30 mmol/L (23-31); Chloride 103 mmol/L (98-107); Globulin 2.6 g/dL (2.4-3.5); Glucose 118 mg/dL (83-110); Potassium 3.2 mmol/L (3.5-5.1); Protein, Total 5.7 g/dL (5.8-8.1); Sodium 142 mmol/L (136-145)
[2020-05-19] MEDS: MEROPENEM 1 GM/50 ML 1 GM in Premix Bag 1 BAG IVPB SCH ×3 (06:22→22:22)
[2020-05-19] MEDS ORDERED: Potassium Chloride 20 MEQ TAB PO SCH (06:45)
[2020-05-19] MEDS: Amlodipine 5 MG TAB PO SCH (09:41)
[2020-05-19] MEDS: Cholecalciferol 1,000 UNITS (25 MCG) TAB PO SCH (09:41)
[2020-05-19] MEDS: Folic Acid 1 MG TAB PO SCH (09:41)
[2020-05-19] MEDS: Enoxaparin Sodium 40 MG/0.4 ML SYRINGE SC SCH (09:42)
[2020-05-19] MEDS: Furosemide 40 MG/4 ML VIAL SLOW IVP SCH (09:42)
[2020-05-19] MEDS: Vancomycin 1.5 GRAM/300 ML BAG 1.5 GM in Premix Bag 1 BAG IVPB SCH (13:35)
[2020-05-19 23:01] LABS: Vancomycin, Trough 24.7 ug/mL
[2020-05-20] MEDS: MEROPENEM 1 GM/50 ML 1 GM in Premix Bag 1 BAG IVPB SCH ×3 (05:07→21:27)
[2020-05-20] MEDS: VANCOMYCIN 1.25 GM/250 ML BAG 1.25 GM in Premix Bag 1 BAG IVPB SCH ×2 (06:13→18:26)
[2020-05-20] MEDS: Vancomycin 1.5 GRAM/300 ML BAG 1.5 GM in Premix Bag 1 BAG IVPB SCH (07:29)
[2020-05-20] MEDS: Amlodipine 5 MG TAB PO SCH (10:01)
[2020-05-20] MEDS: Folic Acid 1 MG TAB PO SCH (10:01)
[2020-05-20] MEDS: Enoxaparin Sodium 40 MG/0.4 ML SYRINGE SC SCH (10:01)
[2020-05-20] MEDS: Furosemide 40 MG/4 ML VIAL SLOW IVP SCH (10:01)
[2020-05-20] MEDS: Cholecalciferol 1,000 UNITS (25 MCG) TAB PO SCH (10:01)
[2020-05-21] MEDS: MEROPENEM 1 GM/50 ML 1 GM in Premix Bag 1 BAG IVPB SCH ×3 (05:26→23:51)
[2020-05-21] MEDS: VANCOMYCIN 1.25 GM/250 ML BAG 1.25 GM in Premix Bag 1 BAG IVPB SCH (06:12)
[2020-05-21 06:44] LABS: #Lymphocytes 0.8 thou/uL (1.20-3.40); #Monocytes 0.5 thou/uL (0.11-0.59); #Neutrophils 7.6 thou/uL (1.40-6.50); %Eosinophils 0.3 % (0.0-10.0); %Lymphocytes 9.2 % (21.0-51.0); %Neutrophils 84.6 % (42.0-75.0); Hemoglobin 12.4 g/dL (12.0-16.0); Mean Corpuscular HGB CONC 28.4 g/dL (32.0-36.0); Mean Corpuscular Hemoglobin 18.9 pg (27.0-31.0); Mean Corpuscular Volume 66.5 fL (78.0-98.0); Mean Platelet Volume 7.3 fL (7.4-10.4); Platelet Count 250 thou/uL (130-400); Red Blood Cell (RBC) Count 6.56 mill/uL (4.20-5.40); White Blood Cell (WBC) Count 8.9 thou/uL (4.8-10.8)
[2020-05-21 07:08] LABS: ALT (SGPT) 50 U/L (8-55); AST (SGOT) 56 U/L (5-34); Albumin 2.8 g/dL (3.4-4.8); Alkaline Phosphatase 133 U/L (40-110); Anion Gap 18 mmol/L (10-20); BUN (Urea Nitrogen) 13 mg/dL (9.8-20.1); Bilirubin, Total 8.6 mg/dL (0.2-1.2); Calc. Creatinine Clearance 152 mL/min (70-130); Calcium 8.4 mg/dL (7.8-10.44); Carbon Dioxide 25 mmol/L (23-31); Chloride 101 mmol/L (98-107); Globulin 2.8 g/dL (2.4-3.5); Glucose 94 mg/dL (83-110); Protein, Total 5.6 g/dL (5.8-8.1); Sodium 141 mmol/L (136-145)
[2020-05-21] MEDS ORDERED: Furosemide 40 MG TAB PO SCH (07:30)
[2020-05-21] MEDS ORDERED: Potassium Chloride 20 MEQ TAB PO SCH ×2 (08:15→11:15)
[2020-05-21] MEDS: Enoxaparin Sodium 40 MG/0.4 ML SYRINGE SC SCH (09:53)
[2020-05-21] MEDS: Folic Acid 1 MG TAB PO SCH (09:54)
[2020-05-21] MEDS: Amlodipine 5 MG TAB PO SCH (09:54)
[2020-05-21] MEDS: Cholecalciferol 1,000 UNITS (25 MCG) TAB PO SCH (09:54)
[2020-05-21 10:11] LABS: Hypochromia SLIGHT = 6-15 cells (100X) (0-5/hpf); MDiff Complete? YES; Microcytosis MODERATE=15-30 cells (100X) (0-5/hpf); Platelet Morphology Comment Appears Adequate; Polychromasia MODERATE = 3-4 cells (100X) (0-2/hpf); Spherocytes SLIGHT = 1-5 cells (100X) (None Seen); Target Cells MODERATE= 6-15 cells (100X) (0-1/hpf)
[2020-05-21] MEDS ORDERED: Spironolactone 25 MG TAB PO SCH (11:15)
[2020-05-21] MEDS ORDERED: Ziprasidone 20 MG CAP PO SCH (11:30)
[2020-05-21] MEDS: Potassium Chloride 20 MEQ TAB PO SCH (16:35)
[2020-05-22] MEDS: Lorazepam 2 MG/ML VIAL SLOW IVP PRN ×2 (05:44→12:42)
[2020-05-22] MEDS: MEROPENEM 1 GM/50 ML 1 GM in Premix Bag 1 BAG IVPB SCH ×3 (05:44→22:52)
[2020-05-22 07:25] LABS: INR-International Normal Ratio 1.3; Prothrombin Time 16.8 sec (12.0-14.7)
[2020-05-22 07:27] LABS: #Lymphocytes 0.7 thou/uL (1.20-3.40); #Monocytes 0.7 thou/uL (0.11-0.59); #Neutrophils 9.2 thou/uL (1.40-6.50); %Basophils 0.4 % (0.0-1.0); %Eosinophils 0.1 % (0.0-10.0); %Lymphocytes 6.9 % (21.0-51.0); %Monocytes 6.2 % (0.0-10.0); %Neutrophils 86.5 % (42.0-75.0); Hemoglobin 13.2 g/dL (12.0-16.0); Mean Corpuscular HGB CONC 29.2 g/dL (32.0-36.0); Mean Corpuscular Hemoglobin 19.3 pg (27.0-31.0); Mean Corpuscular Volume 66.3 fL (78.0-98.0); Mean Platelet Volume 7.6 fL (7.4-10.4); Platelet Count 301 thou/uL (130-400); RBC Distribution Width 28.5 % (11.5-14.5); Red Blood Cell (RBC) Count 6.81 mill/uL (4.20-5.40); White Blood Cell (WBC) Count 10.7 thou/uL (4.8-10.8)
[2020-05-22 07:44] LABS: ALT (SGPT) 50 U/L (8-55); AST (SGOT) 60 U/L (5-34); Albumin 2.9 g/dL (3.4-4.8); Alkaline Phosphatase 207 U/L (40-110); Anion Gap 16 mmol/L (10-20); BUN (Urea Nitrogen) 11 mg/dL (9.8-20.1); Bilirubin, Total 9.1 mg/dL (0.2-1.2); Calc. Creatinine Clearance 139 mL/min (70-130); Calcium 8.6 mg/dL (7.8-10.44); Carbon Dioxide 27 mmol/L (23-31); Chloride 101 mmol/L (98-107); Globulin 2.8 g/dL (2.4-3.5); Glucose 117 mg/dL (83-110); Potassium 3.7 mmol/L (3.5-5.1); Protein, Total 5.7 g/dL (5.8-8.1); Sodium 140 mmol/L (136-145)
[2020-05-22] MEDS: Potassium Chloride 20 MEQ TAB PO SCH (08:55)
[2020-05-22] MEDS: Cholecalciferol 1,000 UNITS (25 MCG) TAB PO SCH (08:56)
[2020-05-22] MEDS: Amlodipine 5 MG TAB PO SCH (08:56)
[2020-05-22] MEDS: Spironolactone 25 MG TAB PO SCH (08:58)
[2020-05-22] MEDS: Folic Acid 1 MG TAB PO SCH (08:58)
[2020-05-22] MEDS: Enoxaparin Sodium 40 MG/0.4 ML SYRINGE SC SCH (09:00)
[2020-05-22 09:15] LABS: Anisocytosis MARKED = >30 cells (100X) (0-5/hpf); Hypochromia MODERATE=16-30 cells (100X) (0-5/hpf); MDiff Complete? YES; Microcytosis MODERATE=15-30 cells (100X) (0-5/hpf); Platelet Morphology Comment Appears Adequate; Polychromasia MODERATE = 3-4 cells (100X) (0-2/hpf); Target Cells MODERATE= 6-15 cells (100X) (0-1/hpf)
[2020-05-22 15:31] LABS: ANA Symphony (Qualitative) POSITIVE (Negative); ANA Symphony (Quantitative) 5.6 Ratio (< 0.7 Negative); CENP IgG Antibody Greater than 240.0 EliAU/mL (<7 Negative); EliA Vaculitis New Method **** NEW METHOD ****; Jo-1 IgG Antibody Less than 0.3 EliAU/mL (<7 Negative); RNP70 IgG Antibody Less than 0.3 EliAU/mL (<7 Negative); SSA/Ro IgG Antibody Less than 0.3 EliAU/mL (<7 Negative); SSB/La IgG Antibody Less than 0.3 EliAU/mL (<7 Negative); Scleroderma-70 IgG Antibody Less than 0.6 EliAU/mL (<7 Negative); Smith D IgG Antibody 1.3 EliAU/mL (<7 Negative)
[2020-05-22] MEDS: Ziprasidone 20 MG CAP PO SCH (20:34)
[2020-05-23] MEDS ORDERED: diphenhydrAMINE 50 MG/ML VIAL IVP PRN ×2 (01:36→21:57)
[2020-05-23] MEDS: MEROPENEM 1 GM/50 ML 1 GM in Premix Bag 1 BAG IVPB SCH (05:10)
[2020-05-23] MEDS: Spironolactone 25 MG TAB PO SCH (08:10)
[2020-05-23] MEDS: Folic Acid 1 MG TAB PO SCH (08:10)
[2020-05-23] MEDS: Enoxaparin Sodium 40 MG/0.4 ML SYRINGE SC SCH (08:11)
[2020-05-23] MEDS: Amlodipine 5 MG TAB PO SCH (08:11)
[2020-05-23] MEDS: Cholecalciferol 1,000 UNITS (25 MCG) TAB PO SCH (08:11)
[2020-05-23] MEDS: Thiamine 100 MG TAB PO SCH (08:11)
[2020-05-23] MEDS ORDERED: Potassium Chloride 20 MEQ TAB PO SCH (09:00)
[2020-05-23 12:32] LABS: ALT (SGPT) 49 U/L (8-55); AST (SGOT) 50 U/L (5-34); Alkaline Phosphatase 212 U/L (40-110); Anion Gap 18 mmol/L (10-20); BUN (Urea Nitrogen) 12 mg/dL (9.8-20.1); Bilirubin, Total 9.7 mg/dL (0.2-1.2); Calc. Creatinine Clearance 134 mL/min (70-130); Calcium 9.3 mg/dL (7.8-10.44); Carbon Dioxide 26 mmol/L (23-31); Chloride 105 mmol/L (98-107); Glucose 143 mg/dL (83-110); Potassium 5.5 mmol/L (3.5-5.1); Sodium 143 mmol/L (136-145)
[2020-05-23] MEDS: Ziprasidone 20 MG CAP PO SCH (20:08)
[2020-05-23 20:13] LABS: Potassium 3.8 mmol/L (3.5-5.1)
[2020-05-23] MEDS ORDERED: ALPRAZolam 0.5 MG TAB PO SCH (23:45)
[2020-05-23] MEDS ORDERED: Succinylcholine 200 MG/10 ml SYRINGE FS ONE (23:47)
[2020-05-23] MEDS ORDERED: EPINEPHrine 1 MG/10 ML Abboject SYRINGE ONE (23:47)
[2020-05-24 00:15] LABS: Actual Bicarbonate (HCO3a) 17.6 mEq/L (22-28); Base Excess (BEa) -7.2 mEq/L (-2.0 to +3.0); CO2 Tension 33.5 mmHg (35.0-45.0); Calcium, Ionized (arterial) 1.09 mmol/L (1.12-1.30); Carboxyhemoglobin (COHb) 2.5 gm% (0.0-3.0); Hemoglobin (Hb) 13.9 g/dL (12.0-16.0); O2 Tension (PaO2), arterial 63.3 mmHg (> 70.0); Potassium - ABG Lab 4.82 mmol/L (3.70-5.30); pH, Arterial 7.34 (7.35-7.45)
[2020-05-24 00:16] LABS: ALV-art Gradient 607.825 mmHg (0-20); Puncture Site RRA
[2020-05-24] MEDS ORDERED: Propofol 1,000 MG/100 ML VIAL IV ONE (00:21)
[2020-05-24] MEDS ORDERED: Norepinephrine 8 MG/0.9% NS 250 ML ONE (01:10)
[2020-05-24] MEDS ORDERED: Lorazepam 2 MG/ML VIAL ONE (01:16)
[2020-05-24 01:19] LABS: Actual Bicarbonate (HCO3a) 22.7 mEq/L (22-28); Base Excess (BEa) -3.3 mEq/L (-2.0 to +3.0); CO2 Tension 44.5 mmHg (35.0-45.0); Calcium, Ionized (arterial) 1.17 mmol/L (1.12-1.30); Hemoglobin (Hb) 12.6 g/dL (12.0-16.0); O2 Tension (PaO2), arterial 110.5 mmHg (> 70.0); Potassium - ABG Lab 4.21 mmol/L (3.70-5.30); pH, Arterial 7.33 (7.35-7.45)
[2020-05-24 01:20] LABS: Puncture Site LRA
[2020-05-24 01:21] LABS: ALV-art Gradient 475.575 mmHg (0-20)
[2020-05-24] MEDS ORDERED: Fentanyl CADD 100 ML IV SCH (01:30)
[2020-05-24] MEDS ORDERED: Morphine 2 MG/ML VIAL SLOW IVP PRN (01:30)
[2020-05-24] MEDS ORDERED: Lorazepam 2 MG/ML VIAL SLOW IVP PRN (01:30)
[2020-05-24] MEDS ORDERED: Norepinephrine 8 MG/0.9% NS 250 ML IVPB SCH (01:30)
[2020-05-24] MEDS ORDERED: Fentanyl BOLUS 250 ML IVPB PRN (01:30)
[2020-05-24] MEDS ORDERED: Propofol BOLUS 1,000 MG/100 ML VIAL IV PRN (01:30)
[2020-05-24] MEDS ORDERED: Fentanyl CADD 100 ML ONE (01:34)
[2020-05-24 02:19] LABS: ALT (SGPT) 51 U/L (8-55); AST (SGOT) 59 U/L (5-34); Albumin 3.1 g/dL (3.4-4.8); Alkaline Phosphatase 219 U/L (40-110); Anion Gap 26 mmol/L (10-20); BUN (Urea Nitrogen) 12 mg/dL (9.8-20.1); Calc. Creatinine Clearance 106 mL/min (70-130); Calcium 8.6 mg/dL (7.8-10.44); Carbon Dioxide 15 mmol/L (23-31); Chloride 102 mmol/L (98-107); Globulin 2.9 g/dL (2.4-3.5); Glucose 183 mg/dL (83-110); Sodium 138 mmol/L (136-145)
[2020-05-24 02:34] LABS: Lactic Acid 2.8 mmol/L (0.5-2.2)
[2020-05-24 02:34] LABS: Anisocytosis MODERATE=16-30 cells (100X) (0-5/hpf); Band 4 % (5-11); Hemoglobin 13.4 g/dL (12.0-16.0); Hypochromia SLIGHT = 6-15 cells (100X) (0-5/hpf); Large Platelets SLIGHT; Lymphocytes 15 % (21-51); MDiff Complete? YES; Mean Corpuscular HGB CONC 30.2 g/dL (32.0-36.0); Mean Corpuscular Hemoglobin 20.4 pg (27.0-31.0); Mean Corpuscular Volume 67.6 fL (78.0-98.0); Mean Platelet Volume 7.8 fL (7.4-10.4); Microcytosis MODERATE=15-30 cells (100X) (0-5/hpf); Monocytes 11 % (0-10); Neutrophil 68 % (42-75); Nucleated RBC 1 % (0); Platelet Count 420 thou/uL (130-400); Polychromasia SLIGHT = 2-3 cells (100X) (0-2/hpf); RBC Distribution Width 28.9 % (11.5-14.5); Reactive Lymphocytes 2 % (0-10); Red Blood Cell (RBC) Count 6.55 mill/uL (4.20-5.40); White Blood Cell (WBC) Count 17.9 thou/uL (4.8-10.8)
[2020-05-24 02:41] LABS: CKMB 3.6 ng/mL (0-6.6)
[2020-05-24] MEDS ORDERED: Lactated Ringer's 500 ML IV SCH (03:15)
[2020-05-24 04:20] LABS: ALT (SGPT) 44 U/L (8-55); AST (SGOT) 47 U/L (5-34); Albumin 2.7 g/dL (3.4-4.8); Alkaline Phosphatase 190 U/L (40-110); Anion Gap 19 mmol/L (10-20); BUN (Urea Nitrogen) 12 mg/dL (9.8-20.1); Bilirubin, Total 8.8 mg/dL (0.2-1.2); Calc. Creatinine Clearance 105 mL/min (70-130); Calcium 8.4 mg/dL (7.8-10.44); Carbon Dioxide 22 mmol/L (23-31); Chloride 105 mmol/L (98-107); Globulin 2.5 g/dL (2.4-3.5); Glucose 145 mg/dL (83-110); Potassium 3.8 mmol/L (3.5-5.1); Protein, Total 5.2 g/dL (5.8-8.1); Sodium 142 mmol/L (136-145)
[2020-05-24 04:21] LABS: Troponin I 0.168 ng/mL (< 0.028)
[2020-05-24 04:34] LABS: Anisocytosis MODERATE=16-30 cells (100X) (0-5/hpf); Band 9 % (5-11); Hemoglobin 12.1 g/dL (12.0-16.0); Hypochromia SLIGHT = 6-15 cells (100X) (0-5/hpf); Large Platelets SLIGHT; Lymphocytes 9 % (21-51); MDiff Complete? YES; Mean Corpuscular HGB CONC 29.6 g/dL (32.0-36.0); Mean Corpuscular Hemoglobin 19.6 pg (27.0-31.0); Mean Corpuscular Volume 66.1 fL (78.0-98.0); Mean Platelet Volume 8.3 fL (7.4-10.4); Microcytosis MODERATE=15-30 cells (100X) (0-5/hpf); Monocytes 2 % (0-10); Neutrophil 80 % (42-75); Platelet Count 384 thou/uL (130-400); Platelet Morphology Comment Appears Adequate; Polychromasia SLIGHT = 2-3 cells (100X) (0-2/hpf); RBC Distribution Width 28.5 % (11.5-14.5); Red Blood Cell (RBC) Count 6.17 mill/uL (4.20-5.40); Target Cells SLIGHT = 2-5 cells (100X) (0-1/hpf); White Blood Cell (WBC) Count 15.4 thou/uL (4.8-10.8)
[2020-05-24] MEDS: Propofol 1,000 MG/100 ML VIAL IV PRN ×4 (06:33→22:13)
[2020-05-24] MEDS: Spironolactone 25 MG TAB PO SCH (08:00)
[2020-05-24] MEDS: Amlodipine 5 MG TAB PO SCH (09:00)
[2020-05-24] MEDS ORDERED: Iopamidol-370 76% 500 ML 1 ML ONE (09:37)
[2020-05-24] MEDS: Folic Acid 1 MG TAB PO SCH (10:14)
[2020-05-24] MEDS: Cholecalciferol 1,000 UNITS (25 MCG) TAB PO SCH (10:14)
[2020-05-24] MEDS: Enoxaparin Sodium 40 MG/0.4 ML SYRINGE SC SCH (10:14)
[2020-05-24] MEDS: Thiamine 100 MG TAB PO SCH (10:14)
[2020-05-24] MEDS: Dextrose 5 % And 0.9 % NaCl 1,000 ML IV SCH (15:25)
[2020-05-24 21:19] LABS: Bacteria/HPF None Seen HPF (None Seen); Bilirubin 2+ (Negative); Blood, Urine Negative (Negative); Clarity Clear (Clear); Glucose, Urine (Dipstick) Normal (Negative); Ketone, Urine Negative (Negative); Leukocyte 75 Leu/uL (Negative); Nitrite Negative (Negative); Protein, Urine (Dipstick) 20 mg/dL (Neg-Trace); RBC/HPF 0-3 HPF (0-3); Squamous Epithelial 0-3 HPF (0-3); Urobilinogen Normal mg/dL (Less than 2); WBC/HPF 21-50 HPF (0-3); pH, Urine 5.5 (5.0-9.0)
[2020-05-24 21:22] LABS: Specific Gravity, Urine 1.059 (1.002-1.036)
[2020-05-24 21:24] LABS: Urine Culture Reflex Yes Yes
[2020-05-24] MEDS: Ziprasidone 20 MG CAP PO SCH (22:14)
[2020-05-25 04:17] LABS: Anion Gap 13 mmol/L (10-20); BUN (Urea Nitrogen) 11 mg/dL (9.8-20.1); Calc. Creatinine Clearance 111 mL/min (70-130); Calcium 8.1 mg/dL (7.8-10.44); Carbon Dioxide 25 mmol/L (23-31); Chloride 107 mmol/L (98-107); Glucose 127 mg/dL (83-110); Potassium 3.3 mmol/L (3.5-5.1); Sodium 142 mmol/L (136-145)
[2020-05-25 04:19] LABS: Hemoglobin 12.1 g/dL (12.0-16.0); Mean Corpuscular HGB CONC 29.4 g/dL (32.0-36.0); Mean Corpuscular Hemoglobin 19.4 pg (27.0-31.0); Mean Platelet Volume 7.9 fL (7.4-10.4); Platelet Count 357 thou/uL (130-400); RBC Distribution Width 28.9 % (11.5-14.5); Red Blood Cell (RBC) Count 6.26 mill/uL (4.20-5.40); White Blood Cell (WBC) Count 11.7 thou/uL (4.8-10.8)
[2020-05-25] MEDS: Propofol 1,000 MG/100 ML VIAL IV PRN ×3 (04:29→18:33)
[2020-05-25] MEDS: Dextrose 5 % And 0.9 % NaCl 1,000 ML IV SCH ×2 (04:30→18:36)
[2020-05-25] MEDS ORDERED: Potassium Chloride 20 MEQ TAB PO SCH (05:00)
[2020-05-25] MEDS ORDERED: Potassium Bicarbonate/Cit Ac 20 MEQ TAB PER TUBE SCH (05:00)
[2020-05-25] MEDS: Spironolactone 25 MG TAB PO SCH (08:25)
[2020-05-25] MEDS: Amlodipine 5 MG TAB PO SCH (08:25)
[2020-05-25] MEDS: Thiamine 100 MG TAB PO SCH (08:25)
[2020-05-25] MEDS: Cholecalciferol 1,000 UNITS (25 MCG) TAB PO SCH (08:25)
[2020-05-25] MEDS: Folic Acid 1 MG TAB PO SCH (08:25)
[2020-05-25] MEDS: Enoxaparin Sodium 40 MG/0.4 ML SYRINGE SC SCH (08:26)
[2020-05-25] MEDS: Piperacillin/Tazobactam 3.375 GM in Sodium Chloride 0.9% 100 ML IVPB SCH ×3 (09:07→21:07)
[2020-05-25] MEDS ORDERED: Fentanyl CADD 100 ML ONE (18:18)
[2020-05-26] MEDS: Piperacillin/Tazobactam 3.375 GM in Sodium Chloride 0.9% 100 ML IVPB SCH ×4 (03:50→21:01)
[2020-05-26] MEDS: Propofol 1,000 MG/100 ML VIAL IV PRN (03:51)
[2020-05-26 04:12] LABS: INR-International Normal Ratio 1.4; Prothrombin Time 17.1 sec (12.0-14.7)
[2020-05-26 04:24] LABS: ALT (SGPT) 30 U/L (8-55); AST (SGOT) 46 U/L (5-34); Albumin 2.3 g/dL (3.4-4.8); Alkaline Phosphatase 143 U/L (40-110); Anion Gap 12 mmol/L (10-20); BUN (Urea Nitrogen) 11 mg/dL (9.8-20.1); Bilirubin, Total 9.2 mg/dL (0.2-1.2); Calc. Creatinine Clearance 97 mL/min (70-130); Calcium 7.7 mg/dL (7.8-10.44); Carbon Dioxide 25 mmol/L (23-31); Chloride 109 mmol/L (98-107); Globulin 2.4 g/dL (2.4-3.5); Glucose 148 mg/dL (83-110); Potassium 3.5 mmol/L (3.5-5.1); Protein, Total 4.7 g/dL (5.8-8.1); Sodium 142 mmol/L (136-145)
[2020-05-26 04:55] LABS: #Lymphocytes 1.1 thou/uL (1.20-3.40); #Monocytes 0.9 thou/uL (0.11-0.59); #Neutrophils 9.6 thou/uL (1.40-6.50); %Basophils 0.3 % (0.0-1.0); %Lymphocytes 9.6 % (21.0-51.0); Anisocytosis MODERATE=16-30 cells (100X) (0-5/hpf); Hemoglobin 11.8 g/dL (12.0-16.0); Hypochromia SLIGHT = 6-15 cells (100X) (0-5/hpf); Large Platelets SLIGHT; MDiff Complete? YES; Mean Corpuscular HGB CONC 28.6 g/dL (32.0-36.0); Mean Corpuscular Hemoglobin 19.1 pg (27.0-31.0); Mean Corpuscular Volume 66.6 fL (78.0-98.0); Mean Platelet Volume 7.7 fL (7.4-10.4); Microcytosis MODERATE=15-30 cells (100X) (0-5/hpf); Platelet Count 345 thou/uL (130-400); Platelet Morphology Comment Appears Adequate; Polychromasia SLIGHT = 2-3 cells (100X) (0-2/hpf); RBC Distribution Width 28.8 % (11.5-14.5); Red Blood Cell (RBC) Count 6.18 mill/uL (4.20-5.40); White Blood Cell (WBC) Count 11.7 thou/uL (4.8-10.8)
[2020-05-26] MEDS ORDERED: Potassium Bicarbonate/Cit Ac 20 MEQ TAB PER TUBE SCH (05:30)
[2020-05-26 07:34] LABS: Actual Bicarbonate (HCO3a) 22.7 mEq/L (22-28); Base Excess (BEa) -2.1 mEq/L (-2.0 to +3.0); Calcium, Ionized (arterial) 1.11 mmol/L (1.12-1.30); Carboxyhemoglobin (COHb) 1.9 gm% (0.0-3.0); Hemoglobin (Hb) 13.1 g/dL (12.0-16.0); pH, Arterial 7.38 (7.35-7.45)
[2020-05-26 07:38] LABS: O2 Tension (PaO2), arterial 55.8 mmHg (> 70.0)
[2020-05-26 07:39] LABS: Puncture Site LRA
[2020-05-26] MEDS: Folic Acid 1 MG TAB PO SCH (07:48)
[2020-05-26] MEDS: Cholecalciferol 1,000 UNITS (25 MCG) TAB PO SCH (07:48)
[2020-05-26] MEDS: Amlodipine 5 MG TAB PO SCH (07:49)
[2020-05-26] MEDS: Spironolactone 25 MG TAB PO SCH (07:50)
[2020-05-26] MEDS: Thiamine 100 MG TAB PO SCH (07:50)
[2020-05-26] MEDS: Enoxaparin Sodium 40 MG/0.4 ML SYRINGE SC SCH (07:50)
[2020-05-26] MEDS: Dextrose 5 % And 0.9 % NaCl 1,000 ML IV SCH ×2 (08:03→21:01)
[2020-05-26] MEDS: HumaLOG 300 UNITS/3 ML VIAL SC PRN (09:31)
[2020-05-26 14:11] LABS: Alpha-1-Antitrypsin 222 mg/dL (101-187)
[2020-05-26] MEDS ORDERED: traZODone HCl 50 MG TAB PO SCH (21:00)
[2020-05-26] MEDS: PARoxetine 20 MG TAB PO SCH ×2 (21:01→22:54)
[2020-05-27] MEDS: Piperacillin/Tazobactam 3.375 GM in Sodium Chloride 0.9% 100 ML IVPB SCH ×4 (03:39→20:21)
[2020-05-27 04:24] LABS: Hemoglobin 11.3 g/dL (12.0-16.0); Mean Corpuscular HGB CONC 28.7 g/dL (32.0-36.0); Mean Corpuscular Hemoglobin 19.6 pg (27.0-31.0); Mean Corpuscular Volume 68.2 fL (78.0-98.0); Mean Platelet Volume 9.6 fL (7.4-10.4); Platelet Count 286 thou/uL (130-400); RBC Distribution Width 28.9 % (11.5-14.5); Red Blood Cell (RBC) Count 5.79 mill/uL (4.20-5.40); White Blood Cell (WBC) Count 12.4 thou/uL (4.8-10.8)
[2020-05-27] MEDS: Thiamine 100 MG TAB PO SCH (09:19)
[2020-05-27] MEDS: Spironolactone 25 MG TAB PO SCH (09:19)
[2020-05-27] MEDS: Folic Acid 1 MG TAB PO SCH (09:19)
[2020-05-27] MEDS: Enoxaparin Sodium 40 MG/0.4 ML SYRINGE SC SCH (09:19)
[2020-05-27] MEDS: Cholecalciferol 1,000 UNITS (25 MCG) TAB PO SCH (09:19)
[2020-05-27] MEDS: Amlodipine 5 MG TAB PO SCH (09:23)
[2020-05-27] MEDS: Dextrose 5 % And 0.9 % NaCl 1,000 ML IV SCH (09:33)
[2020-05-27] MEDS: PARoxetine 20 MG TAB PO SCH (20:25)
[2020-05-27] MEDS ORDERED: OLANZapine 10 MG VIAL IM SCH (22:45)
[2020-05-27] MEDS ORDERED: Sterile Water 10 ML VIAL FS SCH (22:45)
[2020-05-27] MEDS: HumaLOG 300 UNITS/3 ML VIAL SC PRN (22:58)
[2020-05-28] MEDS: Dextrose 5 % And 0.9 % NaCl 1,000 ML IV SCH (03:39)
[2020-05-28] MEDS: Piperacillin/Tazobactam 3.375 GM in Sodium Chloride 0.9% 100 ML IVPB SCH ×4 (03:40→20:35)
[2020-05-28 05:41] LABS: ALT (SGPT) 51 U/L (8-55); AST (SGOT) 82 U/L (5-34); Albumin 2.6 g/dL (3.4-4.8); Alkaline Phosphatase 190 U/L (40-110); Anion Gap 11 mmol/L (10-20); BUN (Urea Nitrogen) 8 mg/dL (9.8-20.1); Bilirubin, Total 16.2 mg/dL (0.2-1.2); Calc. Creatinine Clearance 118 mL/min (70-130); Calcium 8.1 mg/dL (7.8-10.44); Carbon Dioxide 25 mmol/L (23-31); Chloride 113 mmol/L (98-107); Globulin 2.5 g/dL (2.4-3.5); Glucose 108 mg/dL (83-110); Protein, Total 5.1 g/dL (5.8-8.1); Sodium 146 mmol/L (136-145)
[2020-05-28 05:45] LABS: Potassium 2.9 mmol/L (3.5-5.1)
[2020-05-28 05:54] LABS: Hemoglobin 11.4 g/dL (12.0-16.0); Mean Corpuscular HGB CONC 28.7 g/dL (32.0-36.0); Mean Corpuscular Hemoglobin 19.6 pg (27.0-31.0); Mean Corpuscular Volume 68.2 fL (78.0-98.0); Mean Platelet Volume 8.3 fL (7.4-10.4); Platelet Count 275 thou/uL (130-400); Red Blood Cell (RBC) Count 5.82 mill/uL (4.20-5.40); White Blood Cell (WBC) Count 9.3 thou/uL (4.8-10.8)
[2020-05-28] MEDS: Amlodipine 5 MG TAB PO SCH (07:45)
[2020-05-28] MEDS: Folic Acid 1 MG TAB PO SCH (07:46)
[2020-05-28] MEDS: Thiamine 100 MG TAB PO SCH (07:46)
[2020-05-28] MEDS: Cholecalciferol 1,000 UNITS (25 MCG) TAB PO SCH (07:46)
[2020-05-28] MEDS: Spironolactone 25 MG TAB PO SCH (07:46)
[2020-05-28] MEDS: Enoxaparin Sodium 40 MG/0.4 ML SYRINGE SC SCH (07:47)
[2020-05-28] MEDS: Potassium Chloride 40 MEQ in Premix Bag 1 BAG IVPB SCH ×2 (07:49→10:13)
[2020-05-28] MEDS ORDERED: Furosemide 20 MG/2 ML VIAL SLOW IVP SCH (10:30)
[2020-05-28] MEDS: Ursodiol 300 MG CAP PO SCH (14:53)
[2020-05-28 17:30] LABS: Anion Gap 16 mmol/L (10-20); BUN (Urea Nitrogen) 8 mg/dL (9.8-20.1); Calc. Creatinine Clearance 129 mL/min (70-130); Calcium 8.1 mg/dL (7.8-10.44); Carbon Dioxide 16 mmol/L (23-31); Chloride 118 mmol/L (98-107); Glucose 107 mg/dL (83-110); Potassium 4.8 mmol/L (3.5-5.1); Sodium 145 mmol/L (136-145)
[2020-05-28] MEDS: PARoxetine 20 MG TAB PO SCH (20:35)
[2020-05-29] MEDS: Piperacillin/Tazobactam 3.375 GM in Sodium Chloride 0.9% 100 ML IVPB SCH ×2 (03:12→08:11)
[2020-05-29 04:29] LABS: ALT (SGPT) 54 U/L (8-55); AST (SGOT) 90 U/L (5-34); Albumin 2.6 g/dL (3.4-4.8); Alkaline Phosphatase 271 U/L (40-110); Anion Gap 12 mmol/L (10-20); BUN (Urea Nitrogen) 9 mg/dL (9.8-20.1); Bilirubin, Total 15.6 mg/dL (0.2-1.2); Calc. Creatinine Clearance 114 mL/min (70-130); Calcium 8.7 mg/dL (7.8-10.44); Carbon Dioxide 25 mmol/L (23-31); Chloride 114 mmol/L (98-107); Glucose 115 mg/dL (83-110); Magnesium 1.5 mg/dL (1.6-2.6); Potassium 3.6 mmol/L (3.5-5.1); Protein, Total 5.3 g/dL (5.8-8.1); Sodium 147 mmol/L (136-145)
[2020-05-29 05:12] LABS: Bilirubin, Direct 12.2 mg/dL (0.1-0.3)
[2020-05-29] MEDS ORDERED: Magnesium 2 GM/50 ML 2 GM in Premix Bag 1 BAG IVPB SCH (06:30)
[2020-05-29] MEDS: Enoxaparin Sodium 40 MG/0.4 ML SYRINGE SC SCH (08:12)
[2020-05-29] MEDS: Folic Acid 1 MG TAB PO SCH (08:16)
[2020-05-29] MEDS: Thiamine 100 MG TAB PO SCH (08:16)
[2020-05-29] MEDS: Spironolactone 25 MG TAB PO SCH (08:16)
[2020-05-29] MEDS: Cholecalciferol 1,000 UNITS (25 MCG) TAB PO SCH (08:16)
[2020-05-29] MEDS: Amlodipine 5 MG TAB PO SCH (08:16)
[2020-05-29] MEDS: Ursodiol 300 MG CAP PO SCH ×2 (08:17→15:49)
[2020-05-29] MEDS ORDERED: Furosemide 20 MG/2 ML VIAL SLOW IVP SCH (15:00)
[2020-05-29] MEDS: Amoxicillin/Potassium Clav 875 MG TAB PO SCH (20:54)
[2020-05-29] MEDS: PARoxetine 20 MG TAB PO SCH (20:54)
[2020-05-30 06:02] LABS: Anion Gap 13 mmol/L (10-20); BUN (Urea Nitrogen) 9 mg/dL (9.8-20.1); Calc. Creatinine Clearance 111 mL/min (70-130); Calcium 8.4 mg/dL (7.8-10.44); Carbon Dioxide 25 mmol/L (23-31); Chloride 112 mmol/L (98-107); Glucose 94 mg/dL (83-110); Magnesium 1.5 mg/dL (1.6-2.6); Sodium 146 mmol/L (136-145)
[2020-05-30] MEDS ORDERED: Magnesium 2 GM/50 ML 2 GM in Premix Bag 1 BAG IVPB SCH (06:30)
[2020-05-30] MEDS: Ursodiol 300 MG CAP PO SCH ×2 (08:58→16:52)
[2020-05-30] MEDS: Thiamine 100 MG TAB PO SCH (08:58)
[2020-05-30] MEDS: Cholecalciferol 1,000 UNITS (25 MCG) TAB PO SCH (08:58)
[2020-05-30] MEDS: Amlodipine 5 MG TAB PO SCH (08:58)
[2020-05-30] MEDS: Enoxaparin Sodium 40 MG/0.4 ML SYRINGE SC SCH (08:58)
[2020-05-30] MEDS: Spironolactone 25 MG TAB PO SCH (08:58)
[2020-05-30] MEDS: Folic Acid 1 MG TAB PO SCH (08:58)
[2020-05-30] MEDS: Amoxicillin/Potassium Clav 875 MG TAB PO SCH ×2 (08:58→20:29)
[2020-05-30] MEDS ORDERED: Furosemide 20 MG/2 ML VIAL SLOW IVP SCH (13:15)
[2020-05-30] MEDS: Loperamide HCl 2 MG CAP PO SCH ×2 (13:55→20:29)
[2020-05-30] MEDS: Nicotine 14 MG PATCH TOP SCH (17:33)
[2020-05-30] MEDS: PARoxetine 20 MG TAB PO SCH (20:29)
[2020-05-31 06:10] LABS: ALT (SGPT) 49 U/L (8-55); AST (SGOT) 64 U/L (5-34); Albumin 2.6 g/dL (3.4-4.8); Alkaline Phosphatase 292 U/L (40-110); Bilirubin, Direct 9.2 mg/dL (0.1-0.3); Bilirubin, Total 11.9 mg/dL (0.2-1.2); Protein, Total 5.4 g/dL (5.8-8.1)
[2020-05-31] MEDS: Enoxaparin Sodium 40 MG/0.4 ML SYRINGE SC SCH (07:54)
[2020-05-31] MEDS: Ursodiol 300 MG CAP PO SCH ×2 (07:56→17:03)
[2020-05-31] MEDS: Folic Acid 1 MG TAB PO SCH (07:57)
[2020-05-31] MEDS: Amoxicillin/Potassium Clav 875 MG TAB PO SCH ×2 (07:57→21:10)
[2020-05-31] MEDS: Loperamide HCl 2 MG CAP PO SCH ×3 (07:58→21:11)
[2020-05-31] MEDS: Spironolactone 25 MG TAB PO SCH (07:58)
[2020-05-31] MEDS: Amlodipine 5 MG TAB PO SCH (07:58)
[2020-05-31] MEDS: Cholecalciferol 1,000 UNITS (25 MCG) TAB PO SCH (07:59)
[2020-05-31] MEDS: Thiamine 100 MG TAB PO SCH (07:59)
[2020-05-31] MEDS: Furosemide 20 MG/2 ML VIAL SLOW IVP SCH (07:59)
[2020-05-31] MEDS ORDERED: Magnesium Oxide 400 MG TAB PO SCH (09:00)
[2020-05-31] MEDS ORDERED: Diphenoxylate HCl/Atropine Tablet PO PRN (10:06)
[2020-05-31] MEDS: Magnesium Oxide 400 MG TAB PO SCH (10:22)
[2020-05-31] MEDS: Nicotine 14 MG PATCH TOP SCH (17:04)
[2020-05-31] MEDS: PARoxetine 20 MG TAB PO SCH (21:11)
[2020-06-01] MEDS ORDERED: Lorazepam 2 MG/ML VIAL SLOW IVP PRN (01:19)
[2020-06-01 04:21] LABS: #Monocytes 0.5 thou/uL (0.11-0.59); #Neutrophils 7.8 thou/uL (1.40-6.50); %Basophils 0.5 % (0.0-1.0); %Eosinophils 0.2 % (0.0-10.0); %Lymphocytes 10.4 % (21.0-51.0); %Monocytes 5.6 % (0.0-10.0); %Neutrophils 83.3 % (42.0-75.0); Hemoglobin 12.9 g/dL (12.0-16.0); Mean Corpuscular HGB CONC 29.6 g/dL (32.0-36.0); Mean Corpuscular Hemoglobin 20.1 pg (27.0-31.0); Mean Platelet Volume 7.9 fL (7.4-10.4); Platelet Count 381 thou/uL (130-400); RBC Distribution Width 29.1 % (11.5-14.5); Red Blood Cell (RBC) Count 6.41 mill/uL (4.20-5.40); White Blood Cell (WBC) Count 9.4 thou/uL (4.8-10.8)
[2020-06-01 04:50] LABS: ALT (SGPT) 46 U/L (8-55); AST (SGOT) 54 U/L (5-34); Albumin 2.7 g/dL (3.4-4.8); Alkaline Phosphatase 295 U/L (40-110); Anion Gap 13 mmol/L (10-20); BUN (Urea Nitrogen) 8 mg/dL (9.8-20.1); Bilirubin, Total 11.5 mg/dL (0.2-1.2); Calc. Creatinine Clearance 123 mL/min (70-130); Calcium 8.2 mg/dL (7.8-10.44); Carbon Dioxide 26 mmol/L (23-31); Chloride 106 mmol/L (98-107); Globulin 2.4 g/dL (2.4-3.5); Glucose 96 mg/dL (83-110); Potassium 3.1 mmol/L (3.5-5.1); Protein, Total 5.1 g/dL (5.8-8.1); Sodium 142 mmol/L (136-145)
[2020-06-01] MEDS ORDERED: Potassium Chloride 20 MEQ TAB PO SCH (06:30)
[2020-06-01] MEDS: Spironolactone 25 MG TAB PO SCH (08:34)
[2020-06-01] MEDS: Amlodipine 5 MG TAB PO SCH (08:34)
[2020-06-01] MEDS: Ursodiol 300 MG CAP PO SCH ×2 (08:34→17:04)
[2020-06-01] MEDS: Amoxicillin/Potassium Clav 875 MG TAB PO SCH ×2 (08:36→21:20)
[2020-06-01] MEDS: Furosemide 20 MG/2 ML VIAL SLOW IVP SCH (08:37)
[2020-06-01] MEDS: Folic Acid 1 MG TAB PO SCH (08:37)
[2020-06-01] MEDS: Cholecalciferol 1,000 UNITS (25 MCG) TAB PO SCH (08:37)
[2020-06-01] MEDS: Enoxaparin Sodium 40 MG/0.4 ML SYRINGE SC SCH (08:37)
[2020-06-01] MEDS: Loperamide HCl 2 MG CAP PO SCH ×3 (08:37→21:20)
[2020-06-01] MEDS: OLANZapine 2.5 MG TAB PO SCH (08:37)
[2020-06-01] MEDS: Magnesium Oxide 400 MG TAB PO SCH (08:37)
[2020-06-01] MEDS: Thiamine 100 MG TAB PO SCH (08:37)
[2020-06-01] MEDS: Nicotine 14 MG PATCH TOP SCH (17:04)
[2020-06-01] MEDS: PARoxetine 20 MG TAB PO SCH (21:21)
[2020-06-02] MEDS: Thiamine 100 MG TAB PO SCH (10:29)
[2020-06-02] MEDS: Ursodiol 300 MG CAP PO SCH ×2 (10:29→18:23)
[2020-06-02] MEDS: OLANZapine 2.5 MG TAB PO SCH (10:29)
[2020-06-02] MEDS: Magnesium Oxide 400 MG TAB PO SCH (10:29)
[2020-06-02] MEDS: Folic Acid 1 MG TAB PO SCH (10:29)
[2020-06-02] MEDS: Loperamide HCl 2 MG CAP PO SCH ×4 (10:30→22:11)
[2020-06-02] MEDS: Furosemide 20 MG/2 ML VIAL SLOW IVP SCH (10:30)
[2020-06-02] MEDS: Spironolactone 25 MG TAB PO SCH (10:30)
[2020-06-02] MEDS: Amlodipine 5 MG TAB PO SCH (10:30)
[2020-06-02] MEDS: Cholecalciferol 1,000 UNITS (25 MCG) TAB PO SCH (10:30)
[2020-06-02] MEDS: Enoxaparin Sodium 40 MG/0.4 ML SYRINGE SC SCH (10:30)
[2020-06-02] MEDS ORDERED: Fluconazole 100 MG TAB PO SCH (14:00)
[2020-06-02 16:04] LABS: Vitamin D, 25 Hydroxy 38.5 ng/ml (> 30.0)
[2020-06-02] MEDS: Nicotine 14 MG PATCH TOP SCH (18:33)
[2020-06-02] MEDS: PARoxetine 20 MG TAB PO SCH (20:23)
[2020-06-02] MEDS: Melatonin 3 MG TAB PO PRN (23:31)
[2020-06-03 06:21] LABS: ALT (SGPT) 43 U/L (8-55); AST (SGOT) 62 U/L (5-34); Albumin 2.4 g/dL (3.4-4.8); Alkaline Phosphatase 254 U/L (40-110); Anion Gap 15 mmol/L (10-20); BUN (Urea Nitrogen) 6 mg/dL (9.8-20.1); Bilirubin, Total 8.3 mg/dL (0.2-1.2); Calc. Creatinine Clearance 140 mL/min (70-130); Calcium 8.5 mg/dL (7.8-10.44); Carbon Dioxide 23 mmol/L (23-31); Chloride 109 mmol/L (98-107); Globulin 2.9 g/dL (2.4-3.5); Glucose 82 mg/dL (83-110); Potassium 3.7 mmol/L (3.5-5.1); Protein, Total 5.3 g/dL (5.8-8.1); Sodium 143 mmol/L (136-145)
[2020-06-03] MEDS: Spironolactone 25 MG TAB PO SCH (09:15)
[2020-06-03] MEDS: Amlodipine 5 MG TAB PO SCH (09:15)
[2020-06-03] MEDS: Ursodiol 300 MG CAP PO SCH ×2 (09:15→18:20)
[2020-06-03] MEDS: Cholecalciferol 1,000 UNITS (25 MCG) TAB PO SCH (09:16)
[2020-06-03] MEDS: OLANZapine 2.5 MG TAB PO SCH (09:16)
[2020-06-03] MEDS: Enoxaparin Sodium 40 MG/0.4 ML SYRINGE SC SCH (09:16)
[2020-06-03] MEDS: Fluconazole 100 MG TAB PO SCH (09:16)
[2020-06-03] MEDS: Magnesium Oxide 400 MG TAB PO SCH (09:16)
[2020-06-03] MEDS: Loperamide HCl 2 MG CAP PO SCH ×3 (09:16→21:16)
[2020-06-03] MEDS: Folic Acid 1 MG TAB PO SCH (09:16)
[2020-06-03] MEDS: Thiamine 100 MG TAB PO SCH (09:17)
[2020-06-03] MEDS: Dextrose 50% Abboject 50 ML SYRINGE SLOW IVP PRN (12:30)
[2020-06-03] MEDS: Furosemide 20 MG/2 ML VIAL SLOW IVP SCH (12:31)
[2020-06-03] MEDS ORDERED: Fentanyl 100 MCG/2 ML VIAL ONE (12:46)
[2020-06-03] MEDS ORDERED: PHENYLEPHRINE-NS 100 MCG/ML 10 ML SYRINGE ONE (14:12)
[2020-06-03] MEDS ORDERED: Ondansetron PF 4 MG/2 ML Vial ONE (14:12)
[2020-06-03] MEDS ORDERED: Lidocaine 1% PF 5 ML VIAL ONE (14:12)
[2020-06-03] MEDS ORDERED: Dexamethasone 20 MG/5 ML VIAL ONE (14:12)
[2020-06-03] MEDS ORDERED: PROPOFOL 200 MG/20 ML VIAL ONE (14:12)
[2020-06-03] MEDS: Nicotine 14 MG PATCH TOP SCH (18:20)
[2020-06-03] MEDS: PARoxetine 20 MG TAB PO SCH (21:16)
[2020-06-03] MEDS: Melatonin 3 MG TAB PO PRN (21:16)
[2020-06-04] MEDS: Thiamine 100 MG TAB PO SCH (08:14)
[2020-06-04] MEDS: Fluconazole 100 MG TAB PO SCH (08:14)
[2020-06-04] MEDS: Cholecalciferol 1,000 UNITS (25 MCG) TAB PO SCH (08:14)
[2020-06-04] MEDS: Folic Acid 1 MG TAB PO SCH (08:14)
[2020-06-04] MEDS: OLANZapine 2.5 MG TAB PO SCH (08:14)
[2020-06-04] MEDS: Ursodiol 300 MG CAP PO SCH ×2 (08:15→17:20)
[2020-06-04] MEDS: Enoxaparin Sodium 40 MG/0.4 ML SYRINGE SC SCH (08:15)
[2020-06-04] MEDS: Magnesium Oxide 400 MG TAB PO SCH (08:15)
[2020-06-04] MEDS: Loperamide HCl 2 MG CAP PO SCH ×3 (08:15→20:45)
[2020-06-04] MEDS: Spironolactone 25 MG TAB PO SCH (08:15)
[2020-06-04] MEDS: Amlodipine 5 MG TAB PO SCH (08:15)
[2020-06-04] MEDS: Furosemide 20 MG/2 ML VIAL SLOW IVP SCH (08:16)
[2020-06-04 09:23] LABS: INR-International Normal Ratio 1.2; PTT 37.8 sec (22.9-36.1); Prothrombin Time 15.9 sec (12.0-14.7)
[2020-06-04 09:39] LABS: ALT (SGPT) 42 U/L (8-55); AST (SGOT) 46 U/L (5-34); Albumin 2.8 g/dL (3.4-4.8); Alkaline Phosphatase 245 U/L (40-110); Anion Gap 17 mmol/L (10-20); BUN (Urea Nitrogen) 8 mg/dL (9.8-20.1); Bilirubin, Total 7.8 mg/dL (0.2-1.2); Calc. Creatinine Clearance 118 mL/min (70-130); Calcium 8.7 mg/dL (7.8-10.44); Carbon Dioxide 24 mmol/L (23-31); Chloride 105 mmol/L (98-107); Glucose 110 mg/dL (83-110); Protein, Total 5.8 g/dL (5.8-8.1); Sodium 143 mmol/L (136-145)
[2020-06-04 09:41] LABS: Potassium 2.9 mmol/L (3.5-5.1)
[2020-06-04] MEDS ORDERED: Potassium Chloride 20 MEQ TAB PO SCH ×2 (10:30→14:45)
[2020-06-04 10:38] VITALS: BMI 35.5
[2020-06-04] MEDS: HumaLOG 300 UNITS/3 ML VIAL SC PRN (11:49)
[2020-06-04] MEDS ORDERED: Nystatin Powder 15 GM BOT TOP PRN (13:38)
[2020-06-04] MEDS: Nicotine 14 MG PATCH TOP SCH (17:21)
[2020-06-04] MEDS: PARoxetine 20 MG TAB PO SCH (20:45)
[2020-06-05 06:43] LABS: INR-International Normal Ratio 1.2; Prothrombin Time 15.3 sec (12.0-14.7)
[2020-06-05 06:44] LABS: PTT 35.4 sec (22.9-36.1)
[2020-06-05 07:03] LABS: ALT (SGPT) 36 U/L (8-55); AST (SGOT) 43 U/L (5-34); Albumin 2.9 g/dL (3.4-4.8); Alkaline Phosphatase 227 U/L (40-110); Anion Gap 14 mmol/L (10-20); BUN (Urea Nitrogen) 9 mg/dL (9.8-20.1); Bilirubin, Total 7.6 mg/dL (0.2-1.2); Calc. Creatinine Clearance 121 mL/min (70-130); Calcium 8.7 mg/dL (7.8-10.44); Carbon Dioxide 30 mmol/L (23-31); Chloride 105 mmol/L (98-107); Globulin 2.8 g/dL (2.4-3.5); Glucose 95 mg/dL (83-110); Potassium 3.7 mmol/L (3.5-5.1); Protein, Total 5.7 g/dL (5.8-8.1); Sodium 145 mmol/L (136-145)
[2020-06-05] MEDS: Amlodipine 5 MG TAB PO SCH (09:43)
[2020-06-05] MEDS: Loperamide HCl 2 MG CAP PO SCH ×3 (09:43→20:48)
[2020-06-05] MEDS: Enoxaparin Sodium 40 MG/0.4 ML SYRINGE SC SCH (09:44)
[2020-06-05] MEDS: Magnesium Oxide 400 MG TAB PO SCH (09:44)
[2020-06-05] MEDS: Folic Acid 1 MG TAB PO SCH (09:44)
[2020-06-05] MEDS: Spironolactone 25 MG TAB PO SCH (09:44)
[2020-06-05] MEDS: Fluconazole 100 MG TAB PO SCH (09:44)
[2020-06-05] MEDS: Cholecalciferol 1,000 UNITS (25 MCG) TAB PO SCH (09:44)
[2020-06-05] MEDS: Ursodiol 300 MG CAP PO SCH ×2 (09:44→17:36)
[2020-06-05] MEDS: Thiamine 100 MG TAB PO SCH (09:44)
[2020-06-05] MEDS: OLANZapine 2.5 MG TAB PO SCH (09:44)
[2020-06-05] MEDS: Furosemide 20 MG/2 ML VIAL SLOW IVP SCH (09:45)
[2020-06-05 17:36] LABS: Cardiolipin IgA Ab 8.1 APL-U/mL (<14 Negative); Cardiolipin IgG Ab 3.3 GPL-U/mL (<10 Negative); EliA APS New Method **** NEW METHOD ****
[2020-06-05] MEDS: Nicotine 14 MG PATCH TOP SCH (17:36)
[2020-06-05] MEDS: PARoxetine 20 MG TAB PO SCH (20:48)
[2020-06-06] MEDS ORDERED: Labetalol HCl 100 MG/20 ML VIAL ONE (08:26)
[2020-06-06] MEDS: Ursodiol 300 MG CAP PO SCH ×2 (08:48→17:25)
[2020-06-06] MEDS: OLANZapine 2.5 MG TAB PO SCH (08:48)
[2020-06-06] MEDS: Folic Acid 1 MG TAB PO SCH (08:48)
[2020-06-06] MEDS: Fluconazole 100 MG TAB PO SCH (08:48)
[2020-06-06] MEDS: Furosemide 40 MG TAB PO SCH (08:48)
[2020-06-06] MEDS: Enoxaparin Sodium 40 MG/0.4 ML SYRINGE SC SCH (08:49)
[2020-06-06] MEDS: Loperamide HCl 2 MG CAP PO SCH ×3 (08:49→21:34)
[2020-06-06] MEDS: Cholecalciferol 1,000 UNITS (25 MCG) TAB PO SCH (08:49)
[2020-06-06] MEDS: Amlodipine 5 MG TAB PO SCH (08:49)
[2020-06-06] MEDS: Thiamine 100 MG TAB PO SCH (08:49)
[2020-06-06] MEDS: Spironolactone 25 MG TAB PO SCH (08:49)
[2020-06-06] MEDS: Magnesium Oxide 400 MG TAB PO SCH (08:52)
[2020-06-06 09:36] LABS: ALT (SGPT) 34 U/L (8-55); AST (SGOT) 56 U/L (5-34); Albumin 2.6 g/dL (3.4-4.8); Alkaline Phosphatase 214 U/L (40-110); Anion Gap 21 mmol/L (10-20); BUN (Urea Nitrogen) 7 mg/dL (9.8-20.1); Bilirubin, Total 6.9 mg/dL (0.2-1.2); Calc. Creatinine Clearance 131 mL/min (70-130); Calcium 8.3 mg/dL (7.8-10.44); Carbon Dioxide 19 mmol/L (23-31); Chloride 107 mmol/L (98-107); Globulin 2.9 g/dL (2.4-3.5); Glucose 103 mg/dL (83-110); Potassium 4.5 mmol/L (3.5-5.1); Protein, Total 5.5 g/dL (5.8-8.1); Sodium 142 mmol/L (136-145)
[2020-06-06 17:13] LABS: INR-International Normal Ratio 1.2; PTT 30.4 sec (22.9-36.1); Prothrombin Time 15.7 sec (12.0-14.7)
[2020-06-06 17:14] LABS: D-Dimer Test 2.74 *mcg/mL (0.27-0.43)
[2020-06-06] MEDS: Nicotine 14 MG PATCH TOP SCH (17:25)
[2020-06-06 18:50] LABS: Bilirubin Negative (Negative); Blood, Urine Negative (Negative); Clarity Clear (Clear); Glucose, Urine (Dipstick) Normal (Negative); Ketone, Urine Negative (Negative); Leukocyte Negative Leu/uL (Negative); Nitrite Negative (Negative); Protein, Urine (Dipstick) Negative (Neg-Trace); RBC/HPF 0-3 HPF (0-3); Specific Gravity, Urine 1.006 (1.002-1.036); Squamous Epithelial 0-3 HPF (0-3); Urobilinogen Normal mg/dL (Less than 2); WBC/HPF 0-3 HPF (0-3)
[2020-06-06 18:51] LABS: Bacteria/HPF Rare-Few HPF (None Seen)
[2020-06-06 18:52] LABS: Urine Culture Reflex No No
[2020-06-06] MEDS: PARoxetine 20 MG TAB PO SCH (21:33)
[2020-06-07 08:07] LABS: ALT (SGPT) 34 U/L (8-55); AST (SGOT) 42 U/L (5-34); Albumin 2.8 g/dL (3.4-4.8); Alkaline Phosphatase 208 U/L (40-110); Anion Gap 17 mmol/L (10-20); BUN (Urea Nitrogen) 6 mg/dL (9.8-20.1); Calc. Creatinine Clearance 127 mL/min (70-130); Calcium 8.6 mg/dL (7.8-10.44); Carbon Dioxide 26 mmol/L (23-31); Chloride 104 mmol/L (98-107); Glucose 107 mg/dL (83-110); Magnesium 1.9 mg/dL (1.6-2.6); Potassium 3.3 mmol/L (3.5-5.1); Protein, Total 5.8 g/dL (5.8-8.1); Sodium 144 mmol/L (136-145)
[2020-06-07] MEDS: Ursodiol 300 MG CAP PO SCH ×2 (08:07→17:10)
[2020-06-07] MEDS: Magnesium Oxide 400 MG TAB PO SCH (08:08)
[2020-06-07] MEDS: Thiamine 100 MG TAB PO SCH (08:08)
[2020-06-07] MEDS: Amlodipine 5 MG TAB PO SCH (08:08)
[2020-06-07] MEDS: Furosemide 40 MG TAB PO SCH (08:08)
[2020-06-07] MEDS: Cholecalciferol 1,000 UNITS (25 MCG) TAB PO SCH (08:08)
[2020-06-07] MEDS: Loperamide HCl 2 MG CAP PO SCH ×3 (08:08→20:46)
[2020-06-07] MEDS: Spironolactone 25 MG TAB PO SCH (08:08)
[2020-06-07] MEDS: Folic Acid 1 MG TAB PO SCH (08:08)
[2020-06-07] MEDS: Enoxaparin Sodium 40 MG/0.4 ML SYRINGE SC SCH (08:08)
[2020-06-07 08:22] LABS: INR-International Normal Ratio 1.2; PTT 36.7 sec (22.9-36.1); Prothrombin Time 15.1 sec (12.0-14.7)
[2020-06-07 08:43] LABS: #Lymphocytes 1.2 thou/uL (1.20-3.40); #Monocytes 0.5 thou/uL (0.11-0.59); %Basophils 0.5 % (0.0-1.0); %Eosinophils 0.2 % (0.0-10.0); %Lymphocytes 13.9 % (21.0-51.0); %Monocytes 6.1 % (0.0-10.0); %Neutrophils 79.3 % (42.0-75.0); Anisocytosis MODERATE=16-30 cells (100X) (0-5/hpf); Hemoglobin 12.6 g/dL (12.0-16.0); Large Platelets SLIGHT; MDiff Complete? YES; Mean Corpuscular Hemoglobin 20.5 pg (27.0-31.0); Mean Corpuscular Volume 70.7 fL (78.0-98.0); Mean Platelet Volume 7.5 fL (7.4-10.4); Microcytosis MODERATE=15-30 cells (100X) (0-5/hpf); Platelet Count 375 thou/uL (130-400); Polychromasia SLIGHT = 2-3 cells (100X) (0-2/hpf); RBC Distribution Width 29.2 % (11.5-14.5); Red Blood Cell (RBC) Count 6.13 mill/uL (4.20-5.40); Target Cells SLIGHT = 2-5 cells (100X) (0-1/hpf); White Blood Cell (WBC) Count 8.8 thou/uL (4.8-10.8)
[2020-06-07] MEDS ORDERED: Magnesium 2 GM/50 ML 2 GM in Premix Bag 1 BAG IVPB SCH (08:45)
[2020-06-07] MEDS ORDERED: Potassium Chloride 20 MEQ TAB PO SCH (08:45)
[2020-06-07] MEDS ORDERED: Magnesium Oxide 400 MG TAB PO SCH (10:45)
[2020-06-07] MEDS: Nicotine 14 MG PATCH TOP SCH (17:09)
[2020-06-07] MEDS: PARoxetine 20 MG TAB PO SCH (20:46)
[2020-06-08 06:38] LABS: #Basophils 0.1 thou/uL (0.0-0.2); #Lymphocytes 1.3 thou/uL (1.20-3.40); #Monocytes 0.6 thou/uL (0.11-0.59); %Basophils 1.1 % (0.0-1.0); %Eosinophils 0.2 % (0.0-10.0); %Lymphocytes 16.7 % (21.0-51.0); %Monocytes 7.2 % (0.0-10.0); %Neutrophils 74.8 % (42.0-75.0); Hemoglobin 12.6 g/dL (12.0-16.0); Mean Corpuscular HGB CONC 28.8 g/dL (32.0-36.0); Mean Corpuscular Hemoglobin 20.4 pg (27.0-31.0); Platelet Count 366 thou/uL (130-400); Red Blood Cell (RBC) Count 6.15 mill/uL (4.20-5.40)
[2020-06-08 06:57] LABS: Albumin 2.8 g/dL (3.4-4.8); Anion Gap 17 mmol/L (10-20); BUN (Urea Nitrogen) 5 mg/dL (9.8-20.1); Bilirubin, Total 6.5 mg/dL (0.2-1.2); Calc. Creatinine Clearance 111 mL/min (70-130); Calcium 8.6 mg/dL (7.8-10.44); Carbon Dioxide 27 mmol/L (23-31); Chloride 102 mmol/L (98-107); Glucose 98 mg/dL (83-110); Potassium 3.4 mmol/L (3.5-5.1); Protein, Total 5.6 g/dL (5.8-8.1); Sodium 143 mmol/L (136-145)
[2020-06-08 06:58] LABS: ALT (SGPT) 33 U/L (8-55); AST (SGOT) 37 U/L (5-34); Alkaline Phosphatase 188 U/L (40-110); Globulin 2.8 g/dL (2.4-3.5)
[2020-06-08] MEDS ORDERED: Potassium Chloride 20 MEQ TAB PO SCH (08:00)
[2020-06-08 08:39] LABS: Hypochromia SLIGHT = 6-15 cells (100X) (0-5/hpf); MDiff Complete? YES; Microcytosis SLIGHT = 6-15 cells (100X) (0-5/hpf); Platelet Morphology Comment Appears Adequate; Polychromasia SLIGHT = 2-3 cells (100X) (0-2/hpf); Stomatocytes SLIGHT = 2-5 cells (100X) (0-1/hpf)
[2020-06-08] MEDS: Enoxaparin Sodium 40 MG/0.4 ML SYRINGE SC SCH (08:59)
[2020-06-08] MEDS: Cholecalciferol 1,000 UNITS (25 MCG) TAB PO SCH (08:59)
[2020-06-08] MEDS: Spironolactone 25 MG TAB PO SCH (08:59)
[2020-06-08] MEDS: Furosemide 40 MG TAB PO SCH (08:59)
[2020-06-08] MEDS: Amlodipine 5 MG TAB PO SCH (08:59)
[2020-06-08] MEDS: Folic Acid 1 MG TAB PO SCH (08:59)
[2020-06-08] MEDS: Magnesium Oxide 400 MG TAB PO SCH (08:59)
[2020-06-08] MEDS: Thiamine 100 MG TAB PO SCH (08:59)
[2020-06-08] MEDS: Ursodiol 300 MG CAP PO SCH ×2 (08:59→17:39)
[2020-06-08] MEDS: Nicotine 14 MG PATCH TOP SCH (17:39)
[2020-06-08] MEDS: PARoxetine 20 MG TAB PO SCH (21:56)
[2020-06-09 07:56] VITALS: BP 152/82; TEMP 97.8
[2020-06-09] MEDS: Spironolactone 25 MG TAB PO SCH (08:39)
[2020-06-09] MEDS: Cholecalciferol 1,000 UNITS (25 MCG) TAB PO SCH (08:39)
[2020-06-09] MEDS: Folic Acid 1 MG TAB PO SCH (08:39)
[2020-06-09] MEDS: Amlodipine 5 MG TAB PO SCH (08:39)
[2020-06-09] MEDS: Magnesium Oxide 400 MG TAB PO SCH (08:39)
[2020-06-09] MEDS: Furosemide 40 MG TAB PO SCH (08:39)
[2020-06-09] MEDS: Thiamine 100 MG TAB PO SCH (08:39)
[2020-06-09] MEDS: Enoxaparin Sodium 40 MG/0.4 ML SYRINGE SC SCH (08:40)
[2020-06-09] MEDS: Ursodiol 300 MG CAP PO SCH (08:40)
== END 2020-06-09 16:32 | disposition swing bed (61) | DRG 871 ==
LOC: ERS 13:21 → IMCU/EMU 17:16 → T4-A 05-21 20:13 → CCU 05-24 00:31 → IMCU/EMU 05-28 10:00 → T4-A 05-29 18:36
PROVIDERS: ADMIT Internal Medicine; ATTEND Hospitalist
PROC: 02HV33Z Insertion of Infusion Device into Superior Vena Cava, Percutaneous Approach (ICD-10-PCS; 2020-05-15)
PROC: 5A1945Z Respiratory Ventilation, 24-96 Consecutive Hours (ICD-10-PCS; 2020-05-24)
PROC: 3E033XZ Introduction of Vasopressor into Peripheral Vein, Percutaneous Approach (ICD-10-PCS; 2020-05-24)
PROC: 5A12012 Performance of Cardiac Output, Single, Manual (ICD-10-PCS; 2020-05-24)
PROC: 0BH17EZ Insertion of Endotracheal Airway into Trachea, Via Natural or Artificial Opening (ICD-10-PCS; 2020-05-24)
PROC: 02H633Z Insertion of Infusion Device into Right Atrium, Percutaneous Approach (ICD-10-PCS; 2020-05-24)
PROC: B548ZZA Ultrasonography of Superior Vena Cava, Guidance (ICD-10-PCS; 2020-05-24)
PROC: 5A0945A Assistance with Respiratory Ventilation, 24-96 Consecutive Hours, High Flow/Velocity Cannula (ICD-10-PCS; 2020-05-26)
PROC: 5A09357 Assistance with Respiratory Ventilation, Less than 24 Consecutive Hours, Continuous Positive Airway Pressure (ICD-10-PCS; 2020-05-27)
PROC: 0FB23ZX Excision of Left Lobe Liver, Percutaneous Approach, Diagnostic (ICD-10-PCS; principal; 2020-06-05)
DX: A41.4 Sepsis due to anaerobes (principal); K72.00 Acute and subacute hepatic failure without coma; J96.01 Acute respiratory failure with hypoxia; I50.33 Acute on chronic diastolic (congestive) heart failure; K83.1 Obstruction of bile duct; I46.9 Cardiac arrest, cause unspecified; J69.0 Pneumonitis due to inhalation of food and vomit; G92 Toxic encephalopathy; K83.09 Other cholangitis; E87.1 Hypo-osmolality and hyponatremia; E87.2 Acidosis; I47.1 Supraventricular tachycardia; K52.1 Toxic gastroenteritis and colitis; K76.6 Portal hypertension; K75.4 Autoimmune hepatitis; Z20.822 Contact with and (suspected) exposure to COVID-19; E78.5 Hyperlipidemia, unspecified; E66.01 Morbid (severe) obesity due to excess calories; G47.33 Obstructive sleep apnea (adult) (pediatric); Z96.653 Presence of artificial knee joint, bilateral; F17.210 Nicotine dependence, cigarettes, uncomplicated; I11.0 Hypertensive heart disease with heart failure; E53.8 Deficiency of other specified B group vitamins; K86.89 Other specified diseases of pancreas; F41.9 Anxiety disorder, unspecified; E61.1 Iron deficiency; E11.9 Type 2 diabetes mellitus without complications; I27.20 Pulmonary hypertension, unspecified; T43.595A Adverse effect of other antipsychotics and neuroleptics, initial encounter; F03.90 Unspecified dementia, unspecified severity, without behavioral disturbance, psychotic disturbance, mood disturbance, and anxiety; F31.9 Bipolar disorder, unspecified; F20.9 Schizophrenia, unspecified; J44.9 Chronic obstructive pulmonary disease, unspecified; T36.95XA Adverse effect of unspecified systemic antibiotic, initial encounter; E87.6 Hypokalemia; J98.01 Acute bronchospasm; E87.5 Hyperkalemia; Z68.33 Body mass index [BMI] 33.0-33.9, adult; Z78.1 Physical restraint status; Z88.5 Allergy status to narcotic agent; Z91.040 Latex allergy status; Z79.899 Other long term (current) drug therapy; Z79.82 Long term (current) use of aspirin; Z79.84 Long term (current) use of oral hypoglycemic drugs; Z85.820 Personal history of malignant melanoma of skin; Z98.51 Tubal ligation status
CPT/HCPCS: 0240U; 36415; 36416; 36600; 47000; 51701; 70450; 70551; 71045; 71275; 72125; 74177; 74183; 76705; 77002; 80048; 80053; 80074; 80076; 80202; 81001; 81003; 81015; 82103; 82104; 82105; 82140; 82247; 82306; 82378; 82390; 82533; 82553; 82607; 82746; 82805; 83516; 83605; 83615; 83690; 83735; 83880; 83930; 83935; 84300; 84425; 84443; 84484; 84550; 85025; 85027; 85046; 85060; 85379; 85610; 85730; 86038; 86140; 86147; 86225; 86235; 86301; 87040; 87076; 87086; 87149; 87324; 87449; 88307; 88313; 88321; 93005; 93010; 93306; 93975; 93976; 94002; 94003; 94640; 94760; 95712; 95819; 95957; 96374; 96375; A9579; J0153; J0171; J1100; J1200; J1630; J1650; J1815; J1940; J2060; J2185; J2270; J2358; J2405; J2543; J2704; J3010; J3370; J3475; J3480; J3490; J7042; J7050; J7620; P9047; Q9967

== ENCOUNTER 2021-01-06 17:31 | Inpatient (IN) | payer MEDICARE, BC ==
[2021-01-06] MEDS ORDERED: Dextrose 5% in Water 1,000 ML IV PRN (21:43)
[2021-01-06] MEDS ORDERED: Ondansetron PF 4 MG/2 ML Vial IVP PRN (21:43)
[2021-01-06] MEDS ORDERED: Acetaminophen 650 MG Suppository PR PRN (21:43)
[2021-01-06] MEDS ORDERED: HumaLOG 300 UNITS/3 ML VIAL SC PRN (21:43)
[2021-01-06] MEDS ORDERED: Ondansetron ODT 4 MG TAB PO PRN (21:43)
[2021-01-07 05:40] LABS: Anion Gap 16 mmol/L (10-20); BUN (Urea Nitrogen) 21 mg/dL (9.8-20.1); Calc. Creatinine Clearance 66 mL/min (70-130); Calcium 10.1 mg/dL (7.8-10.44); Carbon Dioxide 24 mmol/L (23-31); Chloride 96 mmol/L (98-107); Glucose 139 mg/dL (83-110); Potassium 3.7 mmol/L (3.5-5.1); Sodium 132 mmol/L (136-145)
[2021-01-07 05:59] LABS: #Lymphocytes 0.9 thou/uL (1.20-3.40); #Monocytes 0.5 thou/uL (0.11-0.59); #Neutrophils 7.3 thou/uL (1.40-6.50); %Basophils 0.1 % (0.0-1.0); %Eosinophils 0.1 % (0.0-10.0); %Lymphocytes 10.4 % (21.0-51.0); %Monocytes 6.1 % (0.0-10.0); %Neutrophils 83.3 % (42.0-75.0); Anisocytosis SLIGHT = 6-15 cells (100X) (0-5/hpf); Hemoglobin 10.8 g/dL (12.0-16.0); Hypochromia SLIGHT = 6-15 cells (100X) (0-5/hpf); Large Platelets SLIGHT; MDiff Complete? YES; Mean Corpuscular HGB CONC 28.5 g/dL (32.0-36.0); Mean Corpuscular Hemoglobin 17.8 pg (27.0-31.0); Mean Corpuscular Volume 62.4 fL (78.0-98.0); Mean Platelet Volume 6.8 fL (7.4-10.4); Microcytosis MODERATE=15-30 cells (100X) (0-5/hpf); Platelet Count 378 thou/uL (130-400); Platelet Morphology Comment Appears Adequate; Red Blood Cell (RBC) Count 6.05 mill/uL (4.20-5.40); Target Cells MODERATE= 6-15 cells (100X) (0-1/hpf); White Blood Cell (WBC) Count 8.8 thou/uL (4.8-10.8)
[2021-01-07] MEDS: Enoxaparin Sodium 40 MG/0.4 ML SYRINGE SC SCH (08:08)
[2021-01-07] MEDS: Furosemide 40 MG/4 ML VIAL SLOW IVP SCH (08:08)
[2021-01-07] MEDS: HumaLOG 300 UNITS/3 ML VIAL SC PRN (17:02)
[2021-01-08 08:33] LABS: ALT (SGPT) 20 U/L (8-55); AST (SGOT) 31 U/L (5-34); Albumin 3.1 g/dL (3.4-4.8); Alkaline Phosphatase 73 U/L (40-110); Anion Gap 17 mmol/L (10-20); BUN (Urea Nitrogen) 18 mg/dL (9.8-20.1); Bilirubin, Total 9.8 mg/dL (0.2-1.2); Calc. Creatinine Clearance 86 mL/min (70-130); Calcium 9.7 mg/dL (7.8-10.44); Carbon Dioxide 20 mmol/L (23-31); Chloride 99 mmol/L (98-107); Globulin 2.9 g/dL (2.4-3.5); Glucose 86 mg/dL (83-110); Potassium 3.3 mmol/L (3.5-5.1); Sodium 133 mmol/L (136-145)
[2021-01-08] MEDS: Furosemide 40 MG/4 ML VIAL SLOW IVP SCH (11:07)
[2021-01-08] MEDS: Ursodiol 300 MG CAP PO SCH ×2 (11:07→17:15)
[2021-01-08] MEDS: Enoxaparin Sodium 40 MG/0.4 ML SYRINGE SC SCH (11:08)
[2021-01-08] MEDS ORDERED: Digoxin 0.5 MG/2 ML AMP SLOW IVP SCH ×2 (15:45→17:45)
[2021-01-08] MEDS ORDERED: Digoxin 0.125 MG TAB PO SCH (19:45)
[2021-01-08] MEDS: Metoprolol Tartrate 25 MG TAB PO SCH (20:01)
[2021-01-09 05:06] LABS: ALT (SGPT) 20 U/L (8-55); AST (SGOT) 30 U/L (5-34); Albumin 3.2 g/dL (3.4-4.8); Alkaline Phosphatase 79 U/L (40-110); Anion Gap 17 mmol/L (10-20); BUN (Urea Nitrogen) 17 mg/dL (9.8-20.1); Bilirubin, Total 10.4 mg/dL (0.2-1.2); Calc. Creatinine Clearance 97 mL/min (70-130); Calcium 9.7 mg/dL (7.8-10.44); Carbon Dioxide 21 mmol/L (23-31); Chloride 99 mmol/L (98-107); Glucose 85 mg/dL (83-110); Potassium 3.3 mmol/L (3.5-5.1); Protein, Total 6.2 g/dL (5.8-8.1); Sodium 134 mmol/L (136-145)
[2021-01-09] MEDS ORDERED: Potassium Chloride 20 MEQ TAB PO SCH (08:00)
[2021-01-09] MEDS ORDERED: Furosemide 40 MG/4 ML VIAL SLOW IVP SCH (08:15)
[2021-01-09] MEDS: Digoxin 0.125 MG TAB PO SCH (09:57)
[2021-01-09] MEDS: Metoprolol Tartrate 25 MG TAB PO SCH ×2 (09:58→21:12)
[2021-01-09] MEDS: Enoxaparin Sodium 40 MG/0.4 ML SYRINGE SC SCH (09:59)
[2021-01-09] MEDS: Ursodiol 300 MG CAP PO SCH ×2 (09:59→17:55)
[2021-01-09] MEDS: Furosemide 40 MG/4 ML VIAL SLOW IVP SCH (14:59)
[2021-01-10 05:25] LABS: ALT (SGPT) 18 U/L (8-55); AST (SGOT) 30 U/L (5-34); Albumin 3.1 g/dL (3.4-4.8); Alkaline Phosphatase 78 U/L (40-110); Anion Gap 16 mmol/L (10-20); BUN (Urea Nitrogen) 13 mg/dL (9.8-20.1); Bilirubin, Total 9.9 mg/dL (0.2-1.2); Calc. Creatinine Clearance 101 mL/min (70-130); Calcium 9.5 mg/dL (7.8-10.44); Carbon Dioxide 22 mmol/L (23-31); Chloride 97 mmol/L (98-107); Globulin 2.9 g/dL (2.4-3.5); Glucose 90 mg/dL (83-110); Potassium 3.4 mmol/L (3.5-5.1); Sodium 132 mmol/L (136-145)
[2021-01-10] MEDS: Furosemide 40 MG/4 ML VIAL SLOW IVP SCH ×2 (08:21→16:06)
[2021-01-10] MEDS: Enoxaparin Sodium 40 MG/0.4 ML SYRINGE SC SCH (12:10)
[2021-01-10] MEDS: Metoprolol Tartrate 25 MG TAB PO SCH ×2 (12:10→20:57)
[2021-01-10] MEDS: Ursodiol 300 MG CAP PO SCH ×2 (12:10→16:02)
[2021-01-10] MEDS: Digoxin 0.125 MG TAB PO SCH (12:11)
[2021-01-10] MEDS: Spironolactone 25 MG TAB PO SCH (12:12)
[2021-01-10] MEDS: Rifaximin 550 MG TAB PO SCH (20:58)
[2021-01-11 05:29] LABS: ALT (SGPT) 19 U/L (8-55); AST (SGOT) 26 U/L (5-34); Albumin 3.4 g/dL (3.4-4.8); Alkaline Phosphatase 82 U/L (40-110); Anion Gap 18 mmol/L (10-20); BUN (Urea Nitrogen) 14 mg/dL (9.8-20.1); Bilirubin, Total 12.1 mg/dL (0.2-1.2); Calc. Creatinine Clearance 85 mL/min (70-130); Carbon Dioxide 22 mmol/L (23-31); Chloride 99 mmol/L (98-107); Glucose 122 mg/dL (83-110); Potassium 3.4 mmol/L (3.5-5.1); Protein, Total 6.4 g/dL (5.8-8.1); Sodium 136 mmol/L (136-145)
[2021-01-11] MEDS: Furosemide 40 MG/4 ML VIAL SLOW IVP SCH ×2 (05:40→15:25)
[2021-01-11 08:49] LABS: Phosphorus 2.5 mg/dL (2.3-4.7)
[2021-01-11 08:54] LABS: Magnesium 2.1 mg/dL (1.6-2.6)
[2021-01-11] MEDS: Enoxaparin Sodium 40 MG/0.4 ML SYRINGE SC SCH (09:58)
[2021-01-11] MEDS: Digoxin 0.125 MG TAB PO SCH (09:59)
[2021-01-11] MEDS: Spironolactone 25 MG TAB PO SCH (09:59)
[2021-01-11] MEDS: Rifaximin 550 MG TAB PO SCH ×2 (10:00→20:32)
[2021-01-11] MEDS: Metoprolol Tartrate 25 MG TAB PO SCH ×2 (10:00→20:31)
[2021-01-11] MEDS: Ursodiol 300 MG CAP PO SCH ×2 (10:12→17:40)
[2021-01-11] MEDS ORDERED: Potassium Chloride 20 MEQ TAB PO SCH (16:30)
[2021-01-11] MEDS: cefTRIAXone\\ROCEPHIN 1 GM in Sodium Chloride 0.9% 100 ML IVPB SCH (17:40)
[2021-01-11 18:13] LABS: Bacteria/HPF None Seen HPF (None Seen); Bilirubin 1+ (Negative); Blood, Urine Negative (Negative); Clarity Clear (Clear); Glucose, Urine (Dipstick) Normal (Negative); Ketone, Urine Negative (Negative); Leukocyte Negative Leu/uL (Negative); Nitrite Negative (Negative); Protein, Urine (Dipstick) Negative (Neg-Trace); RBC/HPF 0-3 HPF (0-3); Specific Gravity, Urine 1.011 (1.002-1.036); Squamous Epithelial None Seen HPF (0-3); Urobilinogen 3 mg/dL (Less than 2); WBC/HPF 0-3 HPF (0-3)
[2021-01-11 18:15] LABS: Urine Culture Reflex No No
[2021-01-12 04:50] LABS: #Monocytes 0.7 thou/uL (0.11-0.59); #Neutrophils 6.8 thou/uL (1.40-6.50); %Basophils 0.3 % (0.0-1.0); %Eosinophils 0.3 % (0.0-10.0); %Lymphocytes 11.4 % (21.0-51.0); %Monocytes 8.4 % (0.0-10.0); %Neutrophils 79.6 % (42.0-75.0); Hemoglobin 11.9 g/dL (12.0-16.0); Mean Corpuscular HGB CONC 29.4 g/dL (32.0-36.0); Mean Corpuscular Hemoglobin 18.7 pg (27.0-31.0); Mean Corpuscular Volume 63.4 fL (78.0-98.0); Mean Platelet Volume 7.5 fL (7.4-10.4); Platelet Count 309 thou/uL (130-400); RBC Distribution Width 26.3 % (11.5-14.5); White Blood Cell (WBC) Count 8.6 thou/uL (4.8-10.8)
[2021-01-12 05:07] LABS: ALT (SGPT) 22 U/L (8-55); AST (SGOT) 28 U/L (5-34); Albumin 3.6 g/dL (3.4-4.8); Alkaline Phosphatase 88 U/L (40-110); Anion Gap 17 mmol/L (10-20); BUN (Urea Nitrogen) 16 mg/dL (9.8-20.1); Bilirubin, Total 12.4 mg/dL (0.2-1.2); Calc. Creatinine Clearance 78 mL/min (70-130); Carbon Dioxide 24 mmol/L (23-31); Chloride 101 mmol/L (98-107); Glucose 127 mg/dL (83-110); Potassium 3.8 mmol/L (3.5-5.1); Protein, Total 6.6 g/dL (5.8-8.1); Sodium 138 mmol/L (136-145)
[2021-01-12] MEDS: Furosemide 40 MG/4 ML VIAL SLOW IVP SCH ×2 (06:05→15:00)
[2021-01-12] MEDS: Digoxin 0.125 MG TAB PO SCH (09:39)
[2021-01-12] MEDS: Metoprolol Tartrate 25 MG TAB PO SCH ×2 (09:41→20:30)
[2021-01-12] MEDS: Spironolactone 25 MG TAB PO SCH (09:41)
[2021-01-12] MEDS: Rifaximin 550 MG TAB PO SCH ×2 (09:41→20:31)
[2021-01-12] MEDS: Enoxaparin Sodium 40 MG/0.4 ML SYRINGE SC SCH (09:42)
[2021-01-12] MEDS: Ursodiol 300 MG CAP PO SCH ×2 (09:42→17:15)
[2021-01-12] MEDS: HumaLOG 300 UNITS/3 ML VIAL SC PRN (12:07)
[2021-01-12] MEDS: cefTRIAXone\\ROCEPHIN 1 GM in Sodium Chloride 0.9% 100 ML IVPB SCH (17:16)
[2021-01-13 04:43] LABS: Band 1 % (5-11); Eosinophils 1 % (0-10); Hemoglobin 11.7 g/dL (12.0-16.0); Hypochromia SLIGHT = 6-15 cells (100X) (0-5/hpf); Lymphocytes 9 % (21-51); MDiff Complete? YES; Mean Corpuscular HGB CONC 28.2 g/dL (32.0-36.0); Mean Corpuscular Volume 63.9 fL (78.0-98.0); Mean Platelet Volume 7.2 fL (7.4-10.4); Monocytes 9 % (0-10); Neutrophil 80 % (42-75); Platelet Count 267 thou/uL (130-400); Platelet Morphology Comment Appears Adequate; Red Blood Cell (RBC) Count 6.47 mill/uL (4.20-5.40); Target Cells SLIGHT = 2-5 cells (100X) (0-1/hpf); White Blood Cell (WBC) Count 8.8 thou/uL (4.8-10.8)
[2021-01-13 04:57] LABS: ALT (SGPT) 19 U/L (8-55); AST (SGOT) 29 U/L (5-34); Albumin 3.4 g/dL (3.4-4.8); Alkaline Phosphatase 85 U/L (40-110); Anion Gap 19 mmol/L (10-20); BUN (Urea Nitrogen) 14 mg/dL (9.8-20.1); Bilirubin, Total 12.5 mg/dL (0.2-1.2); Calc. Creatinine Clearance 91 mL/min (70-130); Calcium 9.7 mg/dL (7.8-10.44); Carbon Dioxide 21 mmol/L (23-31); Chloride 102 mmol/L (98-107); Glucose 128 mg/dL (83-110); Potassium 3.2 mmol/L (3.5-5.1); Protein, Total 6.4 g/dL (5.8-8.1); Sodium 139 mmol/L (136-145)
[2021-01-13] MEDS: Furosemide 40 MG/4 ML VIAL SLOW IVP SCH ×2 (05:02→14:21)
[2021-01-13] MEDS ORDERED: hydrALAZINE 20 MG/ML VIAL SLOW IVP PRN (06:48)
[2021-01-13] MEDS ORDERED: Hydrocerin (Eucerin) Cream 120 gm Jar TOP PRN (06:48)
[2021-01-13] MEDS ORDERED: Calcium Carbonate 500 MG ChewTAB PO PRN (06:48)
[2021-01-13] MEDS ORDERED: GUAIFENESIN SF SOLN 200 MG/10 ML UDCUP PO PRN (06:48)
[2021-01-13] MEDS ORDERED: Sodium Chloride 0.65% Nasal 44 ML BOT EA NARE PRN (06:48)
[2021-01-13] MEDS ORDERED: Benzonatate 100 MG CAP PO PRN (06:48)
[2021-01-13] MEDS ORDERED: Loratadine 10 MG TAB PO PRN (06:48)
[2021-01-13] MEDS ORDERED: Cepastat Lozenges 1 LOZ PO PRN (06:48)
[2021-01-13] MEDS ORDERED: Potassium Chloride 20 MEQ TAB PO SCH (07:00)
[2021-01-13] MEDS: Spironolactone 25 MG TAB PO SCH (10:06)
[2021-01-13] MEDS: Rifaximin 550 MG TAB PO SCH ×2 (10:08→21:33)
[2021-01-13] MEDS: Enoxaparin Sodium 40 MG/0.4 ML SYRINGE SC SCH (10:08)
[2021-01-13] MEDS: Digoxin 0.125 MG TAB PO SCH (10:08)
[2021-01-13] MEDS: Ursodiol 300 MG CAP PO SCH ×2 (10:09→17:29)
[2021-01-13] MEDS: Metoprolol Tartrate 25 MG TAB PO SCH ×2 (10:12→21:33)
[2021-01-13] MEDS: cefTRIAXone\\ROCEPHIN 1 GM in Sodium Chloride 0.9% 100 ML IVPB SCH (17:28)
[2021-01-13] MEDS: Acetaminophen 325 MG TAB PO PRN (18:53)
[2021-01-14 04:18] LABS: #Monocytes 0.7 thou/uL (0.11-0.59); #Neutrophils 7.1 thou/uL (1.40-6.50); %Basophils 0.1 % (0.0-1.0); %Eosinophils 0.1 % (0.0-10.0); %Lymphocytes 11.7 % (21.0-51.0); %Monocytes 7.7 % (0.0-10.0); %Neutrophils 80.4 % (42.0-75.0); Hemoglobin 12.1 g/dL (12.0-16.0); Mean Corpuscular HGB CONC 28.2 g/dL (32.0-36.0); Mean Corpuscular Hemoglobin 18.2 pg (27.0-31.0); Mean Corpuscular Volume 64.5 fL (78.0-98.0); Mean Platelet Volume 7.7 fL (7.4-10.4); Platelet Count 304 thou/uL (130-400); RBC Distribution Width 26.9 % (11.5-14.5); Red Blood Cell (RBC) Count 6.63 mill/uL (4.20-5.40); White Blood Cell (WBC) Count 8.8 thou/uL (4.8-10.8)
[2021-01-14 04:34] LABS: ALT (SGPT) 21 U/L (8-55); AST (SGOT) 26 U/L (5-34); Albumin 3.6 g/dL (3.4-4.8); Alkaline Phosphatase 100 U/L (40-110); Anion Gap 21 mmol/L (10-20); BUN (Urea Nitrogen) 16 mg/dL (9.8-20.1); Bilirubin, Total 14.6 mg/dL (0.2-1.2); Calc. Creatinine Clearance 62 mL/min (70-130); Calcium 10.1 mg/dL (7.8-10.44); Carbon Dioxide 24 mmol/L (23-31); Chloride 105 mmol/L (98-107); Globulin 2.7 g/dL (2.4-3.5); Glucose 126 mg/dL (83-110); Magnesium 2.3 mg/dL (1.6-2.6); Phosphorus 2.7 mg/dL (2.3-4.7); Potassium 3.6 mmol/L (3.5-5.1); Protein, Total 6.3 g/dL (5.8-8.1); Sodium 146 mmol/L (136-145)
[2021-01-14] MEDS: Furosemide 40 MG/4 ML VIAL SLOW IVP SCH (06:00)
[2021-01-14] MEDS ORDERED: Furosemide 40 MG/4 ML VIAL SLOW IVP SCH (09:00)
[2021-01-14] MEDS ORDERED: Famotidine 20 MG TAB PO SCH (09:00)
[2021-01-14] MEDS: Ursodiol 300 MG CAP PO SCH ×2 (09:22→16:54)
[2021-01-14] MEDS: Enoxaparin Sodium 40 MG/0.4 ML SYRINGE SC SCH (09:22)
[2021-01-14] MEDS: Spironolactone 25 MG TAB PO SCH (09:23)
[2021-01-14] MEDS: Metoprolol Tartrate 25 MG TAB PO SCH (09:24)
[2021-01-14] MEDS: Rifaximin 550 MG TAB PO SCH ×2 (09:24→23:17)
[2021-01-14] MEDS: Digoxin 0.125 MG TAB PO SCH (09:24)
[2021-01-14] MEDS: cefTRIAXone\\ROCEPHIN 1 GM in Sodium Chloride 0.9% 100 ML IVPB SCH (16:46)
[2021-01-14] MEDS ORDERED: Norepinephrine 8 MG/0.9% NS 250 ML ONE (19:27)
[2021-01-14] MEDS: Rocuronium Bromide 10 MG/ML (10ML VIAL) ONE ×2 (19:27→19:28)
[2021-01-14] MEDS ORDERED: Fentanyl CADD 100 ML ONE (19:45)
[2021-01-14 20:00] LABS: ALT (SGPT) 29 U/L (8-55); AST (SGOT) 54 U/L (5-34); Albumin 3.6 g/dL (3.4-4.8); Alkaline Phosphatase 103 U/L (40-110); Anion Gap 37 mmol/L (10-20); Anisocytosis MODERATE=16-30 cells (100X) (0-5/hpf); BUN (Urea Nitrogen) 18 mg/dL (9.8-20.1); Band 4 % (5-11); Bilirubin, Total 16.3 mg/dL (0.2-1.2); Calc. Creatinine Clearance 44 mL/min (70-130); Calcium 9.4 mg/dL (7.8-10.44); Carbon Dioxide 11 mmol/L (23-31); Chloride 104 mmol/L (98-107); Globulin 2.8 g/dL (2.4-3.5); Glucose 60 mg/dL (83-110); Hemoglobin 12.7 g/dL (12.0-16.0); Lymphocytes 20 % (21-51); MDiff Complete? YES; Mean Corpuscular HGB CONC 27.2 g/dL (32.0-36.0); Mean Corpuscular Hemoglobin 18.6 pg (27.0-31.0); Mean Corpuscular Volume 68.3 fL (78.0-98.0); Mean Platelet Volume 7.8 fL (7.4-10.4); Monocytes 7 % (0-10); Neutrophil 69 % (42-75); Platelet Count 298 thou/uL (130-400); Polychromasia SLIGHT = 2-3 cells (100X) (0-2/hpf); Potassium 4.5 mmol/L (3.5-5.1); Protein, Total 6.4 g/dL (5.8-8.1); RBC Distribution Width 27.6 % (11.5-14.5); Red Blood Cell (RBC) Count 6.81 mill/uL (4.20-5.40); Sodium 147 mmol/L (136-145); Target Cells SLIGHT = 2-5 cells (100X) (0-1/hpf); White Blood Cell (WBC) Count 15.2 thou/uL (4.8-10.8)
[2021-01-14] MEDS ORDERED: Morphine 4 MG/ML VIAL SLOW IVP PRN (20:11)
[2021-01-14] MEDS ORDERED: DISCONTINUE PREVIOUS NARCOTIC PAIN MEDICATIONS AND BENZODIAZEPINES FS SCH (20:15)
[2021-01-14] MEDS ORDERED: Ventilator Sedation Protocol 1 EACH FS SCH (20:15)
[2021-01-14] MEDS ORDERED: Propofol BOLUS 1,000 MG/100 ML VIAL IV PRN (20:15)
[2021-01-14] MEDS ORDERED: EPINEPHrine 1 MG/ML AMP IVP SCH (20:15)
[2021-01-14] MEDS ORDERED: Fentanyl BOLUS 250 ML IVPB PRN (20:15)
[2021-01-14] MEDS ORDERED: Norepinephrine 8 MG/0.9% NS 250 ML IVPB SCH (20:15)
[2021-01-14 20:26] LABS: Actual Bicarbonate (HCO3a) 11.6 mEq/L (22-28); Base Excess (BEa) -16.3 mEq/L (-2.0 to +3.0); CO2 Tension 34.4 mmHg (35.0-45.0); Calcium, Ionized (arterial) 1.15 mmol/L (1.12-1.30); Carboxyhemoglobin (COHb) 2.3 gm% (0.0-3.0); Hemoglobin (Hb) 13.6 g/dL (12.0-16.0); O2 Tension (PaO2), arterial 80.4 mmHg (> 70.0)
[2021-01-14 20:30] LABS: pH, Arterial 7.15 (7.35-7.45)
[2021-01-14 20:31] LABS: Puncture Site RRA
[2021-01-14] MEDS ORDERED: Piperacillin/Tazobactam 3.375 GM in Sodium Chloride 0.9% 100 ML IVPB SCH (20:45)
[2021-01-14 21:05] LABS: Magnesium 2.5 mg/dL (1.6-2.6)
[2021-01-14 21:07] LABS: Troponin I 0.142 ng/mL (< 0.028)
[2021-01-14] MEDS: Fentanyl CADD 100 ML IV SCH (21:47)
[2021-01-14] MEDS: Sodium Bicarbonate 140 MEQ in Dextrose 5% in Water 1,000 ML IV SCH (22:46)
[2021-01-14] MEDS: Dextrose 50% Abboject 50 ML SYRINGE SLOW IVP PRN (23:14)
[2021-01-14] MEDS: Famotidine/PF 20 mg/2ml Vial SLOW IVP SCH (23:14)
[2021-01-15 00:09] LABS: Troponin I 0.813 ng/mL (< 0.028)
[2021-01-15] MEDS ORDERED: Piperacillin/Tazobactam 3.375 GM in Sodium Chloride 0.9% 100 ML IVPB SCH (02:00)
[2021-01-15] MEDS: Propofol 1,000 MG/100 ML VIAL IV PRN ×3 (02:13→19:20)
[2021-01-15] MEDS: Metoprolol Tartrate 25 MG TAB PO SCH (02:17)
[2021-01-15 02:34] LABS: Troponin I 1.165 ng/mL (< 0.028)
[2021-01-15] MEDS: Piperacillin/Tazobactam 3.375 GM in Sodium Chloride 0.9% 100 ML IVPB SCH ×3 (04:51→20:59)
[2021-01-15] MEDS: Norepinephrine 8 MG/0.9% NS 250 ML IVPB PRN ×3 (05:00→19:21)
[2021-01-15] MEDS: Lorazepam 2 MG/ML VIAL SLOW IVP PRN ×2 (05:21→08:13)
[2021-01-15 05:49] LABS: Anion Gap 19 mmol/L (10-20); BUN (Urea Nitrogen) 23 mg/dL (9.8-20.1); Calc. Creatinine Clearance 39 mL/min (70-130); Carbon Dioxide 26 mmol/L (23-31); Chloride 106 mmol/L (98-107); Glucose 169 mg/dL (83-110); Magnesium 2.2 mg/dL (1.6-2.6); Sodium 148 mmol/L (136-145)
[2021-01-15 05:55] LABS: Potassium 2.7 mmol/L (3.5-5.1)
[2021-01-15 06:02] LABS: ALT (SGPT) 226 U/L (8-55); AST (SGOT) 607 U/L (5-34); Albumin 3.1 g/dL (3.4-4.8); Alkaline Phosphatase 96 U/L (40-110); Bilirubin, Total 15.7 mg/dL (0.2-1.2); Phosphorus 2.9 mg/dL (2.3-4.7); Protein, Total 5.9 g/dL (5.8-8.1)
[2021-01-15 06:09] LABS: Critical Call Chem Troponin I RESULT DECREASING; Troponin I 1.118 ng/mL (< 0.028)
[2021-01-15] MEDS ORDERED: Potassium Chloride 40 MEQ in Premix Bag 1 BAG IVPB SCH (06:30)
[2021-01-15 07:01] LABS: Anisocytosis MODERATE=16-30 cells (100X) (0-5/hpf); Band 9 % (5-11); Hemoglobin 12.3 g/dL (12.0-16.0); Lymphocytes 10 % (21-51); MDiff Complete? YES; Mean Corpuscular HGB CONC 27.8 g/dL (32.0-36.0); Mean Corpuscular Hemoglobin 18.1 pg (27.0-31.0); Mean Corpuscular Volume 65.1 fL (78.0-98.0); Mean Platelet Volume 7.5 fL (7.4-10.4); Monocytes 3 % (0-10); Neutrophil 78 % (42-75); Nucleated RBC 2 % (0); Platelet Count 315 thou/uL (130-400); Polychromasia SLIGHT = 2-3 cells (100X) (0-2/hpf); RBC Distribution Width 27.4 % (11.5-14.5); Red Blood Cell (RBC) Count 6.82 mill/uL (4.20-5.40); Target Cells MODERATE= 6-15 cells (100X) (0-1/hpf); White Blood Cell (WBC) Count 17.9 thou/uL (4.8-10.8)
[2021-01-15 07:09] LABS: Actual Bicarbonate (HCO3a) 23.3 mEq/L (22-28); Base Excess (BEa) 1.1 mEq/L (-2.0 to +3.0); CO2 Tension 30.2 mmHg (35.0-45.0); Calcium, Ionized (arterial) 1.12 mmol/L (1.12-1.30); Carboxyhemoglobin (COHb) 2.3 gm% (0.0-3.0); Potassium - ABG Lab 2.63 mmol/L (3.70-5.30); pH, Arterial 7.51 (7.35-7.45)
[2021-01-15] MEDS ORDERED: Furosemide 40 MG TAB PO SCH (07:30)
[2021-01-15 07:45] LABS: Puncture Site RRA
[2021-01-15] MEDS: Enoxaparin Sodium 30 MG/0.3 ML SYRINGE SC SCH (08:12)
[2021-01-15] MEDS: Ursodiol 300 MG CAP PO SCH ×2 (08:13→18:08)
[2021-01-15] MEDS: Rifaximin 550 MG TAB PO SCH ×2 (08:13→21:00)
[2021-01-15] MEDS: HumaLOG 300 UNITS/3 ML VIAL SC PRN (10:05)
[2021-01-15] MEDS ORDERED: Albumin 25% 25 GM/100 ML BOT IVPB SCH (10:15)
[2021-01-15] MEDS ORDERED: Rocuronium Bromide 10 MG/ML (10ML VIAL) ONE ×2 (11:30→12:00)
[2021-01-15] MEDS: Albumin 25% 25 GM/100 ML BOT IVPB SCH ×3 (13:35→23:55)
[2021-01-15] MEDS: Famotidine/PF 20 mg/2ml Vial SLOW IVP SCH (21:00)
[2021-01-15] MEDS: Sodium Bicarbonate 140 MEQ in Dextrose 5% in Water 1,000 ML IV SCH (21:01)
[2021-01-16] MEDS: Propofol 1,000 MG/100 ML VIAL IV PRN ×3 (01:15→20:49)
[2021-01-16] MEDS: Piperacillin/Tazobactam 3.375 GM in Sodium Chloride 0.9% 100 ML IVPB SCH ×3 (04:16→20:46)
[2021-01-16] MEDS: Norepinephrine 8 MG/0.9% NS 250 ML IVPB PRN (04:17)
[2021-01-16 05:21] LABS: ALT (SGPT) 195 U/L (8-55); AST (SGOT) 321 U/L (5-34); Albumin 3.4 g/dL (3.4-4.8); Alkaline Phosphatase 68 U/L (40-110); Anion Gap 17 mmol/L (10-20); BUN (Urea Nitrogen) 30 mg/dL (9.8-20.1); Bilirubin, Total 13.7 mg/dL (0.2-1.2); Calc. Creatinine Clearance 37 mL/min (70-130); Calcium 9.8 mg/dL (7.8-10.44); Carbon Dioxide 29 mmol/L (23-31); Chloride 107 mmol/L (98-107); Globulin 2.2 g/dL (2.4-3.5); Glucose 147 mg/dL (83-110); Magnesium 2.2 mg/dL (1.6-2.6); Protein, Total 5.6 g/dL (5.8-8.1); Sodium 150 mmol/L (136-145)
[2021-01-16 05:46] LABS: Potassium 2.5 mmol/L (3.5-5.1)
[2021-01-16] MEDS ORDERED: Fentanyl CADD 100 ML ONE (05:52)
[2021-01-16] MEDS: Fentanyl CADD 100 ML IV SCH (05:57)
[2021-01-16] MEDS: Albumin 25% 25 GM/100 ML BOT IVPB SCH ×3 (05:57→22:00)
[2021-01-16] MEDS ORDERED: Potassium Chloride 40 MEQ in Premix Bag 1 BAG IVPB SCH (06:15)
[2021-01-16 06:37] LABS: Anisocytosis MODERATE=16-30 cells (100X) (0-5/hpf); Band 10 % (5-11); Hemoglobin 11.5 g/dL (12.0-16.0); Hypochromia MODERATE=16-30 cells (100X) (0-5/hpf); Large Platelets SLIGHT; Lymphocytes 6 % (21-51); MDiff Complete? YES; Mean Corpuscular HGB CONC 28.4 g/dL (32.0-36.0); Mean Corpuscular Hemoglobin 18.4 pg (27.0-31.0); Mean Corpuscular Volume 64.9 fL (78.0-98.0); Mean Platelet Volume 7.6 fL (7.4-10.4); Microcytosis MODERATE=15-30 cells (100X) (0-5/hpf); Monocytes 3 % (0-10); Neutrophil 81 % (42-75); Nucleated RBC 1 % (0); Platelet Count 260 thou/uL (130-400); Platelet Morphology Comment Appears Adequate; Polychromasia SLIGHT = 2-3 cells (100X) (0-2/hpf); RBC Distribution Width 27.7 % (11.5-14.5); Red Blood Cell (RBC) Count 6.26 mill/uL (4.20-5.40); Target Cells MODERATE= 6-15 cells (100X) (0-1/hpf); White Blood Cell (WBC) Count 13.4 thou/uL (4.8-10.8)
[2021-01-16 07:33] LABS: Actual Bicarbonate (HCO3a) 26.8 mEq/L (22-28); Base Excess (BEa) 4.2 mEq/L (-2.0 to +3.0); CO2 Tension 33.3 mmHg (35.0-45.0); Calcium, Ionized (arterial) 1.16 mmol/L (1.12-1.30); Carboxyhemoglobin (COHb) 2.6 gm% (0.0-3.0); Hemoglobin (Hb) 12.1 g/dL (12.0-16.0); O2 Tension (PaO2), arterial 61.9 mmHg (> 70.0); Potassium - ABG Lab 2.45 mmol/L (3.70-5.30); pH, Arterial 7.52 (7.35-7.45)
[2021-01-16 07:44] LABS: Puncture Site RRA
[2021-01-16 07:45] LABS: ALV-art Gradient 181.675 mmHg (0-20)
[2021-01-16] MEDS: Enoxaparin Sodium 30 MG/0.3 ML SYRINGE SC SCH (08:11)
[2021-01-16] MEDS: Rifaximin 550 MG TAB PO SCH ×2 (08:11→20:46)
[2021-01-16] MEDS: Ursodiol 300 MG CAP PO SCH ×2 (08:11→15:23)
[2021-01-16] MEDS: Sodium Chloride 0.45% 1,000 ML IV SCH (14:20)
[2021-01-16] MEDS: Acetaminophen 325 MG TAB PO PRN (15:23)
[2021-01-16] MEDS: Famotidine/PF 20 mg/2ml Vial SLOW IVP SCH (20:46)
[2021-01-16 22:49] LABS: Potassium 2.9 mmol/L (3.5-5.1)
[2021-01-16] MEDS ORDERED: Electrolyte Replacement Protocol FS PRN (23:00)
[2021-01-17] MEDS: Potassium Chloride 40 MEQ in Premix Bag 1 BAG IVPB SCH ×2 (00:15→02:21)
[2021-01-17] MEDS: Albumin 25% 25 GM/100 ML BOT IVPB SCH ×3 (04:12→16:48)
[2021-01-17] MEDS: Piperacillin/Tazobactam 3.375 GM in Sodium Chloride 0.9% 100 ML IVPB SCH ×3 (04:12→20:37)
[2021-01-17] MEDS: Propofol 1,000 MG/100 ML VIAL IV PRN (05:37)
[2021-01-17 06:14] LABS: ALT (SGPT) 288 U/L (8-55); AST (SGOT) 457 U/L (5-34); Albumin 3.7 g/dL (3.4-4.8); Alkaline Phosphatase 51 U/L (40-110); Anion Gap 17 mmol/L (10-20); BUN (Urea Nitrogen) 36 mg/dL (9.8-20.1); Calc. Creatinine Clearance 35 mL/min (70-130); Calcium 9.6 mg/dL (7.8-10.44); Carbon Dioxide 27 mmol/L (23-31); Chloride 110 mmol/L (98-107); Globulin 2.1 g/dL (2.4-3.5); Glucose 115 mg/dL (83-110); Magnesium 2.2 mg/dL (1.6-2.6); Potassium 3.7 mmol/L (3.5-5.1); Protein, Total 5.8 g/dL (5.8-8.1); Sodium 150 mmol/L (136-145)
[2021-01-17 07:27] LABS: Actual Bicarbonate (HCO3a) 24.9 mEq/L (22-28); Base Excess (BEa) 1.4 mEq/L (-2.0 to +3.0); CO2 Tension 35.5 mmHg (35.0-45.0); Calcium, Ionized (arterial) 1.16 mmol/L (1.12-1.30); Carboxyhemoglobin (COHb) 2.4 gm% (0.0-3.0); Hemoglobin (Hb) 11.1 g/dL (12.0-16.0); O2 Tension (PaO2), arterial 71.4 mmHg (> 70.0); Potassium - ABG Lab 3.47 mmol/L (3.70-5.30); pH, Arterial 7.46 (7.35-7.45)
[2021-01-17 07:44] LABS: ALV-art Gradient 169.425 mmHg (0-20); Puncture Site RRA
[2021-01-17] MEDS: Ursodiol 300 MG CAP PO SCH ×2 (09:22→16:50)
[2021-01-17 09:24] LABS: #Monocytes 0.6 thou/uL (0.11-0.59); #Neutrophils 7.8 thou/uL (1.40-6.50); %Basophils 0.3 % (0.0-1.0); %Eosinophils 0.2 % (0.0-10.0); %Lymphocytes 10.4 % (21.0-51.0); %Monocytes 6.8 % (0.0-10.0); %Neutrophils 82.4 % (42.0-75.0); Hemoglobin 10.3 g/dL (12.0-16.0); Hypochromia SLIGHT = 6-15 cells (100X) (0-5/hpf); MDiff Complete? YES; Mean Corpuscular HGB CONC 27.8 g/dL (32.0-36.0); Mean Corpuscular Hemoglobin 18.3 pg (27.0-31.0); Mean Corpuscular Volume 65.9 fL (78.0-98.0); Mean Platelet Volume 8.6 fL (7.4-10.4); Microcytosis SLIGHT = 6-15 cells (100X) (0-5/hpf); Ovalocytes SLIGHT = 2-5 cells (100X) (0-1/hpf); Platelet Count 214 thou/uL (130-400); Platelet Morphology Comment Appears Adequate; Polychromasia MODERATE = 3-4 cells (100X) (0-2/hpf); RBC Distribution Width 27.5 % (11.5-14.5); Red Blood Cell (RBC) Count 5.63 mill/uL (4.20-5.40); Schistocytes SLIGHT = 2-5 cells (100X) (0-1/hpf); Target Cells MODERATE= 6-15 cells (100X) (0-1/hpf); Tear Drops SLIGHT = 2-5 cells (100X) (0-1/hpf); White Blood Cell (WBC) Count 9.5 thou/uL (4.8-10.8)
[2021-01-17] MEDS: Enoxaparin Sodium 30 MG/0.3 ML SYRINGE SC SCH (09:25)
[2021-01-17] MEDS: Acetaminophen 325 MG TAB PO PRN (09:26)
[2021-01-17] MEDS: Rifaximin 550 MG TAB PO SCH ×2 (09:27→21:40)
[2021-01-17] MEDS: Famotidine/PF 20 mg/2ml Vial SLOW IVP SCH (21:40)
[2021-01-18] MEDS: HumaLOG 300 UNITS/3 ML VIAL SC PRN ×2 (04:01→16:13)
[2021-01-18] MEDS: Piperacillin/Tazobactam 3.375 GM in Sodium Chloride 0.9% 100 ML IVPB SCH ×3 (04:01→20:23)
[2021-01-18 04:31] LABS: ALT (SGPT) 276 U/L (8-55); AST (SGOT) 356 U/L (5-34); Albumin 3.6 g/dL (3.4-4.8); Alkaline Phosphatase 48 U/L (40-110); Anion Gap 13 mmol/L (10-20); BUN (Urea Nitrogen) 41 mg/dL (9.8-20.1); Bilirubin, Total 17.6 mg/dL (0.2-1.2); Calc. Creatinine Clearance 38 mL/min (70-130); Calcium 9.5 mg/dL (7.8-10.44); Carbon Dioxide 28 mmol/L (23-31); Chloride 111 mmol/L (98-107); Globulin 2.1 g/dL (2.4-3.5); Glucose 174 mg/dL (83-110); Magnesium 2.3 mg/dL (1.6-2.6); Potassium 3.2 mmol/L (3.5-5.1); Protein, Total 5.7 g/dL (5.8-8.1); Sodium 149 mmol/L (136-145)
[2021-01-18 05:27] LABS: Anisocytosis MODERATE=16-30 cells (100X) (0-5/hpf); Band 15 % (5-11); Hemoglobin 10.6 g/dL (12.0-16.0); Hypochromia MODERATE=16-30 cells (100X) (0-5/hpf); Large Platelets SLIGHT; Lymphocytes 5 % (21-51); MDiff Complete? YES; Mean Corpuscular HGB CONC 27.6 g/dL (32.0-36.0); Mean Corpuscular Hemoglobin 18.2 pg (27.0-31.0); Mean Corpuscular Volume 65.9 fL (78.0-98.0); Mean Platelet Volume 8.4 fL (7.4-10.4); Microcytosis SLIGHT = 6-15 cells (100X) (0-5/hpf); Monocytes 7 % (0-10); Neutrophil 72 % (42-75); Nucleated RBC 1 % (0); Platelet Count 203 thou/uL (130-400); Platelet Morphology Comment Appears Adequate; RBC Distribution Width 27.8 % (11.5-14.5); Reactive Lymphocytes 1 % (0-10); Red Blood Cell (RBC) Count 5.81 mill/uL (4.20-5.40); Target Cells SLIGHT = 2-5 cells (100X) (0-1/hpf); White Blood Cell (WBC) Count 7.3 thou/uL (4.8-10.8)
[2021-01-18 07:18] LABS: Actual Bicarbonate (HCO3a) 23.4 mEq/L (22-28); Base Excess (BEa) -0.4 mEq/L (-2.0 to +3.0); CO2 Tension 35.3 mmHg (35.0-45.0); Calcium, Ionized (arterial) 1.18 mmol/L (1.12-1.30); Carboxyhemoglobin (COHb) 3.2 gm% (0.0-3.0); Hemoglobin (Hb) 11.5 g/dL (12.0-16.0); O2 Tension (PaO2), arterial 84.3 mmHg (> 70.0); Potassium - ABG Lab 3.25 mmol/L (3.70-5.30); pH, Arterial 7.44 (7.35-7.45)
[2021-01-18 07:39] LABS: ALV-art Gradient 156.775 mmHg (0-20); Puncture Site LRA
[2021-01-18 09:02] VITALS: BMI 38.2
[2021-01-18] MEDS: Ursodiol 300 MG CAP PO SCH ×2 (09:43→16:15)
[2021-01-18] MEDS: Enoxaparin Sodium 30 MG/0.3 ML SYRINGE SC SCH (09:43)
[2021-01-18] MEDS: Rifaximin 550 MG TAB PO SCH ×2 (09:43→20:23)
[2021-01-18] MEDS ORDERED: Furosemide 40 MG/4 ML VIAL IVP SCH (13:15)
[2021-01-18] MEDS: Potassium Chloride 20 MEQ in Premix Bag 1 BAG IVPB SCH ×2 (13:51→14:38)
[2021-01-18] MEDS: Famotidine/PF 20 mg/2ml Vial SLOW IVP SCH (20:23)
[2021-01-18] MEDS: Sodium Chloride 0.45% 1,000 ML IV SCH (20:32)
[2021-01-19] MEDS: Norepinephrine 8 MG/0.9% NS 250 ML IVPB PRN (02:44)
[2021-01-19] MEDS: Piperacillin/Tazobactam 3.375 GM in Sodium Chloride 0.9% 100 ML IVPB SCH ×3 (03:08→20:04)
[2021-01-19 04:03] LABS: ALT (SGPT) 241 U/L (8-55); AST (SGOT) 228 U/L (5-34); Albumin 3.6 g/dL (3.4-4.8); Alkaline Phosphatase 68 U/L (40-110); Anion Gap 19 mmol/L (10-20); BUN (Urea Nitrogen) 53 mg/dL (9.8-20.1); Bilirubin, Total 21.4 mg/dL (0.2-1.2); Calc. Creatinine Clearance 36 mL/min (70-130); Calcium 9.7 mg/dL (7.8-10.44); Carbon Dioxide 25 mmol/L (23-31); Chloride 111 mmol/L (98-107); Globulin 2.5 g/dL (2.4-3.5); Glucose 168 mg/dL (83-110); Magnesium 2.2 mg/dL (1.6-2.6); Potassium 3.8 mmol/L (3.5-5.1); Protein, Total 6.1 g/dL (5.8-8.1); Sodium 151 mmol/L (136-145)
[2021-01-19 04:52] LABS: Anisocytosis MODERATE=16-30 cells (100X) (0-5/hpf); Band 18 % (5-11); Hemoglobin 11.9 g/dL (12.0-16.0); Hypochromia SLIGHT = 6-15 cells (100X) (0-5/hpf); Lymphocytes 11 % (21-51); MDiff Complete? YES; Mean Corpuscular HGB CONC 27.6 g/dL (32.0-36.0); Mean Corpuscular Hemoglobin 18.2 pg (27.0-31.0); Mean Platelet Volume 9.3 fL (7.4-10.4); Monocytes 9 % (0-10); Neutrophil 62 % (42-75); Nucleated RBC 2 % (0); Platelet Count 260 thou/uL (130-400); Polychromasia SLIGHT = 2-3 cells (100X) (0-2/hpf); RBC Distribution Width 28.7 % (11.5-14.5); Red Blood Cell (RBC) Count 6.53 mill/uL (4.20-5.40); White Blood Cell (WBC) Count 11.3 thou/uL (4.8-10.8)
[2021-01-19 07:49] LABS: Actual Bicarbonate (HCO3a) 21.8 mEq/L (22-28); Base Excess (BEa) -1.8 mEq/L (-2.0 to +3.0); CO2 Tension 33.8 mmHg (35.0-45.0); Carboxyhemoglobin (COHb) 2.7 gm% (0.0-3.0); Hemoglobin (Hb) 12.7 g/dL (12.0-16.0); O2 Tension (PaO2), arterial 78.8 mmHg (> 70.0); Potassium - ABG Lab 3.44 mmol/L (3.70-5.30); pH, Arterial 7.43 (7.35-7.45)
[2021-01-19 07:51] LABS: Puncture Site RRA
[2021-01-19] MEDS: Enoxaparin Sodium 30 MG/0.3 ML SYRINGE SC SCH (09:32)
[2021-01-19] MEDS: Rifaximin 550 MG TAB PO SCH ×2 (09:33→20:05)
[2021-01-19] MEDS: Ursodiol 300 MG CAP PO SCH ×2 (09:33→16:18)
[2021-01-19] MEDS ORDERED: Fentanyl 100 MCG/2 ML VIAL SLOW IVP PRN (13:42)
[2021-01-19] MEDS ORDERED: Furosemide 100 MG/10 ML VIAL SLOW IVP SCH (14:00)
[2021-01-19] MEDS: HumaLOG 300 UNITS/3 ML VIAL SC PRN ×2 (16:15→21:21)
[2021-01-19] MEDS: Dexmedetomidine 1,000 MCG in Sodium Chloride 0.9% 250 ML 240 ML IVPB SCH (17:16)
[2021-01-19] MEDS: Famotidine/PF 20 mg/2ml Vial SLOW IVP SCH (20:04)
[2021-01-20] MEDS: Dexmedetomidine 1,000 MCG in Sodium Chloride 0.9% 250 ML 240 ML IVPB SCH (02:19)
[2021-01-20] MEDS: Piperacillin/Tazobactam 3.375 GM in Sodium Chloride 0.9% 100 ML IVPB SCH ×3 (03:21→20:19)
[2021-01-20 04:19] LABS: ALT (SGPT) 156 U/L (8-55); AST (SGOT) 95 U/L (5-34); Albumin 3.1 g/dL (3.4-4.8); Alkaline Phosphatase 65 U/L (40-110); Anion Gap 12 mmol/L (10-20); BUN (Urea Nitrogen) 47 mg/dL (9.8-20.1); Bilirubin, Total 20.7 mg/dL (0.2-1.2); Calc. Creatinine Clearance 45 mL/min (70-130); Calcium 9.4 mg/dL (7.8-10.44); Carbon Dioxide 31 mmol/L (23-31); Chloride 112 mmol/L (98-107); Glucose 180 mg/dL (83-110); Phosphorus 2.9 mg/dL (2.3-4.7); Potassium 3.2 mmol/L (3.5-5.1); Protein, Total 5.8 g/dL (5.8-8.1); Sodium 152 mmol/L (136-145)
[2021-01-20] MEDS: HumaLOG 300 UNITS/3 ML VIAL SC PRN ×2 (04:27→11:34)
[2021-01-20] MEDS ORDERED: Potassium Chloride 40 MEQ in Premix Bag 1 BAG IVPB SCH (05:00)
[2021-01-20] MEDS ORDERED: Magnesium 2 GM/50 ML 2 GM in Premix Bag 1 BAG IVPB SCH (05:00)
[2021-01-20 05:45] LABS: Bilirubin, Direct Greater than 10.0 mg/dL (0.1-0.3)
[2021-01-20 06:26] LABS: Anisocytosis MODERATE=16-30 cells (100X) (0-5/hpf); Band 16 % (5-11); Burr Cells SLIGHT = 2-5 cells (100X) (0-1/hpf); Hemoglobin 11.9 g/dL (12.0-16.0); Hypochromia MODERATE=16-30 cells (100X) (0-5/hpf); Lymphocytes 9 % (21-51); MDiff Complete? YES; Mean Corpuscular HGB CONC 27.4 g/dL (32.0-36.0); Mean Corpuscular Hemoglobin 18.3 pg (27.0-31.0); Mean Corpuscular Volume 66.7 fL (78.0-98.0); Microcytosis SLIGHT = 6-15 cells (100X) (0-5/hpf); Monocytes 8 % (0-10); Myelocyte 1 % (0-0); Neutrophil 66 % (42-75); Nucleated RBC 2 % (0); Platelet Count 266 thou/uL (130-400); Polychromasia SLIGHT = 2-3 cells (100X) (0-2/hpf); RBC Distribution Width 30.3 % (11.5-14.5); Red Blood Cell (RBC) Count 6.52 mill/uL (4.20-5.40); Schistocytes SLIGHT = 2-5 cells (100X) (0-1/hpf); Target Cells MODERATE= 6-15 cells (100X) (0-1/hpf); White Blood Cell (WBC) Count 10.7 thou/uL (4.8-10.8)
[2021-01-20 07:04] VITALS: BP 106/80
[2021-01-20] MEDS: Rifaximin 550 MG TAB PO SCH ×2 (11:23→20:19)
[2021-01-20] MEDS: Enoxaparin Sodium 40 MG/0.4 ML SYRINGE SC SCH (11:23)
[2021-01-20] MEDS: Ursodiol 300 MG CAP PO SCH ×2 (11:24→18:08)
[2021-01-20] MEDS: Albumin 25% 25 GM/100 ML BOT IVPB SCH (11:33)
[2021-01-20] MEDS ORDERED: Haloperidol Lactate 5 MG/ML VIAL SLOW IVP PRN (13:52)
[2021-01-20] MEDS ORDERED: Metoprolol Tartrate 25 MG TAB PO SCH (14:00)
[2021-01-20] MEDS: Octreotide Acetate 100 MCG/ML VIAL SC SCH ×2 (15:12→21:53)
[2021-01-20] MEDS ORDERED: Metoprolol Tartrate 5 MG/5 ML VIAL IVP PRN (17:23)
[2021-01-20] MEDS: Famotidine/PF 20 mg/2ml Vial SLOW IVP SCH (20:19)
[2021-01-20] MEDS: Metoprolol Tartrate 25 MG TAB PO SCH (20:19)
[2021-01-21] MEDS: Piperacillin/Tazobactam 3.375 GM in Sodium Chloride 0.9% 100 ML IVPB SCH ×2 (04:06→10:46)
[2021-01-21 05:09] LABS: ALT (SGPT) 99 U/L (8-55); AST (SGOT) 55 U/L (5-34); Albumin 3.9 g/dL (3.4-4.8); Alkaline Phosphatase 55 U/L (40-110); Magnesium 2.6 mg/dL (1.6-2.6); Protein, Total 6.3 g/dL (5.8-8.1)
[2021-01-21 05:18] LABS: Anisocytosis MODERATE=16-30 cells (100X) (0-5/hpf); Band 11 % (5-11); Burr Cells SLIGHT = 2-5 cells (100X) (0-1/hpf); Hypochromia MODERATE=16-30 cells (100X) (0-5/hpf); Large Platelets SLIGHT; Lymphocytes 15 % (21-51); MDiff Complete? YES; Microcytosis SLIGHT = 6-15 cells (100X) (0-5/hpf); Monocytes 4 % (0-10); Myelocyte 1 % (0-0); Neutrophil 69 % (42-75); Nucleated RBC 9 % (0); Platelet Morphology Comment Appears Adequate; Polychromasia MODERATE = 3-4 cells (100X) (0-2/hpf); Target Cells SLIGHT = 2-5 cells (100X) (0-1/hpf)
[2021-01-21 05:19] LABS: Bilirubin, Total 26.5 mg/dL (0.2-1.2)
[2021-01-21 05:25] LABS: Hemoglobin 11.7 g/dL (12.0-16.0); Mean Corpuscular HGB CONC 27.4 g/dL (32.0-36.0); Mean Corpuscular Hemoglobin 18.7 pg (27.0-31.0); Mean Corpuscular Volume 68.5 fL (78.0-98.0); Platelet Count 230 thou/uL (130-400); RBC Distribution Width 31.4 % (11.5-14.5); Red Blood Cell (RBC) Count 6.26 mill/uL (4.20-5.40); White Blood Cell (WBC) Count 11.4 thou/uL (4.8-10.8)
[2021-01-21 05:49] LABS: Anion Gap 26 mmol/L (10-20); BUN (Urea Nitrogen) 58 mg/dL (9.8-20.1); Calc. Creatinine Clearance 30 mL/min (70-130); Calcium 10.2 mg/dL (7.8-10.44); Carbon Dioxide 20 mmol/L (23-31); Chloride 112 mmol/L (98-107); Glucose 116 mg/dL (83-110); Phosphorus 4.1 mg/dL (2.3-4.7); Potassium 3.7 mmol/L (3.5-5.1); Sodium 154 mmol/L (136-145)
[2021-01-21] MEDS: Octreotide Acetate 100 MCG/ML VIAL SC SCH (06:04)
[2021-01-21 06:30] LABS: Bilirubin, Direct 18.2 mg/dL (0.1-0.3)
[2021-01-21] MEDS: Ursodiol 300 MG CAP PO SCH (08:04)
[2021-01-21] MEDS: Albumin 25% 25 GM/100 ML BOT IVPB SCH (08:05)
[2021-01-21] MEDS: Enoxaparin Sodium 40 MG/0.4 ML SYRINGE SC SCH (08:05)
[2021-01-21] MEDS: Acetaminophen 325 MG TAB PO PRN (08:32)
[2021-01-21 08:33] VITALS: TEMP 99.6
[2021-01-21] MEDS: Metoprolol Tartrate 25 MG TAB PO SCH (08:39)
[2021-01-21] MEDS: Dextrose 50% Abboject 50 ML SYRINGE SLOW IVP PRN (10:46)
[2021-01-21] MEDS ORDERED: Midodrine HCl 5 MG TAB PO SCH (15:00)
[2021-01-21] MEDS ORDERED: Rifaximin 550 MG TAB PO SCH (21:00)
== END 2021-01-21 17:55 | disposition expired | DRG 207 ==
LOC: T4-B 17:31 → 2NO 01-07 00:05 → CCU 01-14 19:24 → IMCU/EMU 01-20 15:01
PROVIDERS: ADMIT Internal Medicine; ATTEND Internal Medicine
PROC: 0BH17EZ Insertion of Endotracheal Airway into Trachea, Via Natural or Artificial Opening (ICD-10-PCS; principal; 2021-01-14)
PROC: 5A1955Z Respiratory Ventilation, Greater than 96 Consecutive Hours (ICD-10-PCS; 2021-01-14)
DX: J96.01 Acute respiratory failure with hypoxia (principal); G93.41 Metabolic encephalopathy; I50.33 Acute on chronic diastolic (congestive) heart failure; K76.7 Hepatorenal syndrome; Z66 Do not resuscitate; J69.0 Pneumonitis due to inhalation of food and vomit; I13.0 Hypertensive heart and chronic kidney disease with heart failure and stage 1 through stage 4 chronic kidney disease, or unspecified chronic kidney disease; I48.92 Unspecified atrial flutter; Z68.41 Body mass index [BMI] 40.0-44.9, adult; N17.9 Acute kidney failure, unspecified; E87.2 Acidosis; E87.1 Hypo-osmolality and hyponatremia; I24.8 Other forms of acute ischemic heart disease; R18.8 Other ascites; K72.90 Hepatic failure, unspecified without coma; E78.5 Hyperlipidemia, unspecified; E11.22 Type 2 diabetes mellitus with diabetic chronic kidney disease; Z96.653 Presence of artificial knee joint, bilateral; K74.3 Primary biliary cirrhosis; G47.33 Obstructive sleep apnea (adult) (pediatric); E66.01 Morbid (severe) obesity due to excess calories; I27.20 Pulmonary hypertension, unspecified; I50.810 Right heart failure, unspecified; E83.52 Hypercalcemia; N18.30 Chronic kidney disease, stage 3 unspecified; D63.1 Anemia in chronic kidney disease; I48.91 Unspecified atrial fibrillation; E87.5 Hyperkalemia; Z88.5 Allergy status to narcotic agent; Z91.040 Latex allergy status; Z79.82 Long term (current) use of aspirin; Z79.899 Other long term (current) drug therapy; Z98.51 Tubal ligation status; Z90.89 Acquired absence of other organs; Z98.890 Other specified postprocedural states; Z87.891 Personal history of nicotine dependence
CPT/HCPCS: 36415; 36416; 36600; 70450; 71045; 74181; 76705; 80048; 80053; 80076; 81001; 82140; 82390; 82525; 82805; 83735; 83880; 84100; 84484; 85007; 85025; 85027; 87040; 93005; 93010; 93306; 93798; 94002; 94003; 95816; 95819; 95957; J0696; J1160; J1650; J1815; J1940; J2060; J2354; J2543; J2704; J3010; J3475; J3480; J3490; J7050; J7070; P9047; S0028